=== PATIENT | female | born 1940 | race Two or more races ===

== ENCOUNTER 2024-08-04 12:55 | Inpatient (IN) | payer MEDICARE, SELFPAY ==
[2024-08-02 18:37] LABS: % Basophils 0.6 % (0-2); % Eosinophils 3.8 % (0-6); % Immature Granulocytes 0.4 % (0-0.5); % Lymphocytes 11.6 % (20.5-51.1); % Monocytes 11.5 % (1.7-9.3); % Neutrophils 72.1 % (42.2-75.2); Absolute Basophils 0.1 10^3/uL (0-0.2); Absolute Eosinophils 0.3 10^3/uL (0-0.7); Absolute Monocytes 0.9 10^3/uL (0.1-0.6); Absolute Neutrophils 5.9 10^3/uL (1.4-6.5); Hematocrit 32.5 % (37.0-47.0); Hemoglobin 11.4 g/dL (12.0-16.0); Mean Corp Hgb Conc. 35.1 g/dL (33.0-37.0); Mean Corpuscular Hgb 29.7 pg (27.0-31.0); Mean Corpuscular Volume 84.6 fL (81.0-99.0); Mean Platelet Volume 9.5 fL (7.4-10.4); Nucleated Red Blood Cells % 0 %; Platelet Count 368 10^3/uL (130-400); Red Blood Cell Count 3.84 10^6/uL (4.20-5.40); Red Cell Dist. Width 14.5 % (11.5-14.5); White Blood Cell Count 8.2 10^3/uL (4.8-10.8)
[2024-08-02 18:50] LABS: ALT (SGPT) 18 U/L (0-35); AST (SGOT) 30 U/L (14-36); Albumin 4.4 g/dl (3.5-5.0); Alkaline Phosphatase 103 U/L (38-126); Blood Urea Nitrogen 19 mg/dl (7-17); Calcium 9.7 mg/dl (8.4-10.2); Carbon Dioxide 20 mmol/L (22-30); Chloride 101 mmol/L (98-107); Glucose 104 mg/dl (70-99); Potassium 4.6 mmol/L (3.5-5.1); Sodium 131 mmol/L (135-145); Total Bilirubin 0.5 mg/dl (0.2-1.3); Total Protein 7.4 g/dl (6.3-8.2); eGFR > 60.00
[2024-08-02] MEDS: NSS 1000 IV (20:53)
[2024-08-02 21:19] VITALS: BP 155/87; BP 163/95; BP 168/89; PULSE 73; PULSE 79; PULSE 84
--- NOTE | 2024-08-02 21:36 | HPS.HSE ---
Family Physician
-
Family Physician: Vijay Ha
Chief Complaint
-
fall
History of Present Illness
Patient is a 83-year-old female with past medical history significant for essential hypertension and hypothyroidism who presented to [facility] ED for evaluation s/p fall. Patient reports sitting on floor and when attempting to get up she
fell and hit head on night table sustaining laceration to left eyebrow. Patient reports poor nutrition in last month related to difficulty eating and drinking. Patient is being followed by GI for this, they attempted a upper endoscopy which was not
completed r/t narrowing of the esophagus. Plan was for procedure with GI on this coming Friday. Patient does state she has some lightheadedness at times, and has been more prevalent with decreased PO intake. Denies any fever, chills, chest pain,
cough, shortness of breath, nausea, vomiting, constipation, diarrhea or urinary symptoms.
Medical History
Past Medical History
Past Medical History: Reports Other
Additional Past Medical History:
essential hypertension
hypothyroidism
Hx hyponatremia
Past Surgical History: Reports Other
Additional Past Surgical History:
right mastectomy
cardiac stent x3
left hip replacement
bilateral shoulder replacement
Social History
Tobacco: Non-smoker
Alcohol: None
Family History
Family History: Not pertinent
Allergies / Home Medications
Allergies reflects when Allergies were last updated in [employer].
Home Medications with original date entered in [facility]
Allergy/Medication List:
Allergies
Allergy/AdvReac Type Severity Reaction Status Date / Time
No Known Allergies Allergy Unverified 08/02/24 17:16
Home Medications
amlodipine 10 mg tablet 10 mg PO DAILY 08/02/24
cyclosporine 0.05 % eye drops in a dropperette (Restasis) 1 drp BOTH EYES Q12H 08/02/24
dorzolamide-timolol (PF) 2 %-0.5 % eye drops in a dropperette 1 drp BOTH EYES BID 08/02/24
levothyroxine 25 mcg tablet 25 mcg PO DAILY 08/02/24
ramipril 5 mg capsule 5 mg PO BID 08/02/24
Review of Systems
-
History Source: Patient
Constitutional: Reports No Symptoms
EENT: Reports No Symptoms
Respiratory: Reports No Symptoms
Cardiac: Reports No Symptoms
Abdomen/GI: Reports Anorexia (r/t difficulty swallowing )
: Reports No Symptoms
Musculoskeletal: Reports No Symptoms
Skin: Reports No Symptoms
Neurological: Reports Dizzy
Endocrine: Reports No Symptoms
Hematologic/Lymphatic: Reports No Symptoms
Psych: Reports No Symptoms
Physical Exam
Vital Signs
Vital Signs
Temp Pulse Resp Pulse Ox
98.1 F 70 20 98
08/02/24 17:16 08/02/24 17:16 08/02/24 17:16 08/02/24 17:16
Physical Exam
General: Well Developed, Well Nourished, No Apparent Distress, Comfortable and Conversant
HEENT: NormoCephalic, Moist mucous membranes, Atraumatic, [place] Conjunctivae, Nose Appears Normal, Ears Appear Normal and Other (laceration to left eyebrow)
Respiratory: Clear
Cardiac: S1/S2 and Regular Rhythm; No Murmur or Rub
Breast: Deferred by me
GI: Soft, Non Tender, Non Distended and Normal Bowel Sounds; No Organomegaly
Rectal: Deferred by Provider
Genito-urinary: Deferred by me
Musculoskeletal: No Clubbing, No Cyanosis and No Edema
Skin: IV/Catheter Site
Neuro: Awake, Alert, AO x 3 and Nonfocal/grossly intact
Psych: Calm and Intact Judgment/Insight
Laboratory Results
-
08/02/24 18:23
08/02/24 18:23
Laboratory Results
Total Bilirubin 0.5 mg/dl (0.2-1.3) 08/02/24 18:23
AST 30 U/L (14-36) 08/02/24 18:23
ALT 18 U/L (0-35) 08/02/24 18:23
Alkaline Phosphatase 103 U/L (38-126) 08/02/24 18:23
Data Reviewed
-
CT Scan: Report Reviewed by me (head: No acute intracranial abnormality noted. Moderate atrophy with sequelae of mild small vessel ischemic disease.)
Lab Data: Labs Reviewed by me
Impression/Plan
-
IMPRESSION/PLAN:
#fall, mechanical vs. syncopal episode
Orthostatic VS negative
NA [address]: No acute intracranial abnormality noted.
Moderate atrophy with sequelae of mild small vessel ischemic disease.
- Admit to telemetry for observation
- orthostatic VS stable in ED
#dysphagia
following with GI for workup
recent upper endoscopy failed r/t narrowing of esophagus
- full liquid diet
- Ensure TID
- Consult GI
- Dr. Zelaya will discuss with Dr. Burr in morning
#essential hypertension
- continue amlodipine and ramipril
#hypothyroidism
- continue levothyroxine
Code status: DNR
DVT Prophylaxis: SCDs
--- NOTE | 2024-08-02 21:57 | W.PN.UPDATE ---
Update Note
Progress Note Update
Patient seen in conjunction with MIDDLEWARE SYSTEMS ARCHITECT. I agree the findings and physical. I concur with assessment plan unless stated otherwise.
Briefly, this is a 83-year-old female with past medical history of CAD status post stenting, history of breast cancer status post left mastectomy and lymph node dissection on in the remote past, hypertension, hypothyroid presenting to the emergency
department after suffering a fall.
Patient has been having some failure to thrive due to dysphagia over the last 1 month. Patient and family she is having difficulty with solids and tablets. She has stopped taking aspirin and statin at this time. It is suspected that she has a
esophageal stricture/narrowing. She had an EGD done last week and was unsuccessful due to inability to pass the camera due to narrowing of the esophagus. She has a pending EGD coming up in 5 days.
Patient reported that she was sitting down and when she attempted to get up she felt like he tripped and smacked left forehead against a table. She developed profuse bleeding over her face and family was called and patient was brought to the
emergency department. Patient reports headache and lightheadedness after the head trauma. Prior to that she reports some intermittent mild dizziness. She denies having any chest pain except when she is swallowing. She denies any palpitations.
She denies orthopnea PND shortness of breath at rest. She denies any ankle edema. She denies any prior history of arrhythmias. Family denies any facial asymmetry, numbness tingling or focal weakness. She reports history of dark stool for which
she was evaluated with alcohol testing by oncology few months ago and was found to be negative.
However when asked how she felt prior to getting up patient could not give a concise story. She used the words 'I felt like I blacked out that part'.
In the emergency department she was afebrile, blood pressure was 155/87, pulse rate was 70 and she was satting 98% on room air. CBC was stable with a hemoglobin of 11.4. Electrolytes notable for sodium of 131 but otherwise unremarkable.
BUN/creatinine were normal. Glucose was normal at 104.
CT of the head shows no acute intracranial process
-Admit to telemetry observation at this point for possible syncope
- tele x 24 hours
- she has negative orthostatics in ED, no need to repeat
- gentle hydration overnight
- continue ramipril and amlodipine
- will give full liquid diet with supplements
- GI planning on possible procedure, Dr Burr and Shanell to discuss in am, consult GI
DVT PPX - SCD
Code status - DNR
--- NOTE | 2024-08-02 22:19 | ED.GENMED ---
History of Present Illness
General
Chief Complaint: Fall
Source: patient and family (Son contributes history, states she has not been eating)
Time Seen by Provider: 08/02/24 17:35
History of Present Illness
History of Present Illness:
83-year-old female presents Emergency Department due to tripping and falling and hitting head, with a laceration to her left eyebrow. She has not been eating, and has esophageal narrowing. An endoscopy was attempted at [facility], but she was unable
to proceed due to the narrowing. She has endoscopic ultrasound scheduled at [facility] on Friday.
Past History
Past History
ED Past Medical History: Cancer (Breast cancer)
ED Past Surgical History: Orthopedic (Elbow surgery, hip surgery, shoulder/) and Other (Breast surgery for breast cancer)
Social History
Tobacco: Non-smoker
Alcohol: None
Drug: None
Living: with family
Review of Systems
Review of Systems
Allergies reviewed?: Yes
All Other Systems: Not applicable
Constitutional: Reports no symptoms
EENT: Reports no symptoms
Respiratory: Reports no symptoms
Cardiac: Reports no symptoms
ABD/GI: Reports anorexia
: Reports no symptoms
Musculoskeletal: Reports no symptoms
Skin: Reports no symptoms
Neurological: Reports no symptoms
Endocrine: Reports no symptoms
Hematologic/Lymphatic: Reports no symptoms
Psychiatric: Reports no symptoms
Phy Exam
Physical Exam
Physical Exam:
Physical Exam
General: Appears uncomfortable
Neck: supple. no meningeal signs. normal posterior pharynx
Heart: s1/s2 regular rate and rhythm, no murmur. equal radial
pulses.
HEENT: Pupils equal round reactive to light, EOMI
Lungs: no acute respiratory distress. clear bilaterally
Abdomen: normal bowel sounds. not tender. no CVAT
Neuro: alert and oriented. no focal neurological deficits cranial nerves II through XII intact
Skin: no rash, laceration left eyebrow 2 cm
Psychiatric: well kept. interactive and cooperative
Extremities: no edema. no calf tenderness. negative homans. good distal pulses
Course
Orders/Labs/Results
Orders:
Orders
08/02/24 18:03
IV Insert/Care/Rem.- Treatment PRN
08/02/24 18:05
CT Head W/o Iv Contrast Urgent
Comment:
Reason For Exam: fall, hit head
08/02/24 18:23
Complete Blood Count/With Diff Urgent
Comprehensive Metabolic Panel Urgent
08/02/24 20:13
0.9% Sodium Chloride 1000 ml [Nss] 1,000 ml IV BOLUS
08/02/24 20:56
Electrocardiogram (*1) Urgent
EKG- Treatment ONCE
Orthostatic VS- Treatment ONCE
08/02/24 22:00
Flush (0.9% Sodium Chloride) [Flush (Nss)] See Dose Instructions IV PER PROTOCOL
08/02/24 22:10
Admit/Transfer Patient As Directed
Co-Sign Provider:
Level of Care: Observation services
Assign to:: Telemetry
Physician / Group: Mirna Gruber
Diagnosis: fall
Reason for Telemetry: Arrhythmia
Date to Stop Telemetry: 08/05/24
Time to Stop Telemetry: 11:00
PRN Pain Medication Management As Directed
May give lesser potent ordered pain med per pt: Yes
preference::
Protocol:: Medication orders for pain may be administered in a
manner that supports deferring to patient preference
when the pt is:
- Requesting an ordered lesser potent pain medication.
Least to most potent pain medications are defined
as: acetaminophen < NSAID < tramadol < opioids
(morphine, oxycodone, hydromorphone).
- Requesting a lesser dose of the same medication IF
ORDERED.
- Requesting a less intrusive route of administration
if both routes are prescribed by the provider (PO <
IV).
08/02/24 22:11
Code Status As Directed
Resuscitation Status: Do not resuscitate
Reached after discussion with pt or family/Healthcare POA: Yes
Decision communicated with: patient and son
DNR Bracelet Application ONCE
08/05/24 11:00
DC Protocol for Telemetry ONCE
Abnormal Lab Results
08/02/24
18:23
RBC 3.84 L 10^6/uL
(4.20-5.40)
Hgb 11.4 L g/dL
(12.0-16.0)
Hct 32.5 L %
(37.0-47.0)
Absolute Lymphs (auto) 1.0 L 10^3/uL
(1.2-3.4)
Absolute Monos (auto) 0.9 H 10^3/uL
(0.1-0.6)
Lymphocytes % 11.6 L %
(20.5-51.1)
Monocytes % 11.5 H %
(1.7-9.3)
Sodium 131 L mmol/L
(135-145)
Carbon Dioxide 20 L mmol/L
(22-30)
BUN 19 H mg/dl
(7-17)
Glucose 104 H mg/dl
(70-99)
08/02/24 18:23
08/02/24 18:23
Vital Signs
Initial and Last Documented VS:
Initial Vital Signs
Temp Pulse Resp Pulse Ox
98.1 F 70 20 98
08/02/24 17:16 08/02/24 17:16 08/02/24 17:16 08/02/24 17:16
Last Documented Vital Signs
Temp Pulse Resp Pulse Ox
98.1 F 70 20 98
08/02/24 17:16 08/02/24 17:16 08/02/24 17:16 08/02/24 17:16
Procedures
Laceration Closure
Left Forehead:
Status of Wound: clean
Size of Wound in cm: 2
Description of Wound Edges: sharp
Preparation: cleaned with saline
Revision/Debridement: routine- no revision
Wound exploration: explored to base- no FB
Type of Closure: Dermabond-skin glue
MDM/Problems Addressed
Differential Diagnosis Includes:
Intracranial hemorrhage, electrolyte abnormality
MDM/Problems Addressed:
83-year-old female with fall, left eyebrow laceration, decreased p.o. intake and esophageal narrowing with mild dehydration. Admit to hospitalist. Discussed with gastroenterology, who will consider endoscopic ultrasound if available.
Chronic conditions affecting care: Other (Esophageal narrowing)
*Radiology
Radiology exam reviewed: radiology read reviewed (CT head no acute findings)
*Pulse Oximetry
Patient hypoxic: no
*EKG
Interpreted by ED Provider?: Yes
EKG Intrepretation Date: 08/02/24
EKG Intrepretation Time: 21:17
Interpretation: abnormal
Comparison EKG: no comparison EKG present
Heart Rate: 77
Rate: normal
Rhythm: sinus
Interval: normal interval
QRS Pattern: normal QRS
Ischemia: no ischemia
*Advice Nurse Interpretation
Rate: Advice Nurse- N/A
*Critical Care Note
Total Time (30-74mins, 75-104mins- exclusive of procedures): Not Applicable
Patient Management
Social determinants of health affecting care: Living situation
Discussion with other providers: Hospitalist, PCP and Manager Auto (Gastroenterology)
Escalation/DeEscalation of care consider admission/obs:
admit indicated
ED Attending Note
-
Portions of this chart may have been created with voice recognition software.� Occasional wrong word or��sound alike� substitutions may have occurred due to the inherent limitations of voice recognition software.
Discharge Plan
Departure
Patient Disposition: Admit
Date of Disposition: 08/02/24
Time of Disposition: 21:10
Admit to: Telemetry
Presentation/result/management discussed w/ accepting MD/DO: Hospitalist
Patient with high blood pressure during this ER visit?: Yes
Condition: Fair
Discharge Problem:
Fall, Laceration of eyebrow, left, Hypovolemia
Prescriptions:
No Action
levothyroxine 25 mcg Tablet
25 mcg PO DAILY
amlodipine 10 mg Tablet
10 mg PO DAILY
ramipril 5 mg Capsule
5 mg PO BID
cyclosporine [Restasis] 0.05 % Dropperette
1 drp BOTH EYES Q12H
dorzolamide-timolol (PF) 2-0.5 % Dropperette
1 drp BOTH EYES BID
Referrals:
Vijay Ha MD [Family Provider] -
Interventions
Interventions:
*Risk Screen - Suicide Last Done: 08/02/24 18:06
*General Assessment Last Done: 08/02/24 17:16
*Neglect/Abuse Screening Last Done: 08/02/24 18:06
*ED- Fall Risk Assessment Last Done: 08/02/24 17:45
*ED COVID-19 Vaccine History Last Done: 08/02/24 17:45
ED-Musculoskeletal Assessment Last Done: 08/02/24 18:05
ED- Neurological Assessment Last Done: 08/02/24 18:05
ED-Skin Assessment Last Done: 08/02/24 18:05
Discharge Date and Time
Print Language: GEORGIAN
[2024-08-02 22:39] VITALS: BP 155/87
[2024-08-03] VITALS (20 sets, daily range): BP systolic 110–179; BP diastolic 65–85; PULSE 75–86; BMI 20.7; BMI 19.4
[2024-08-03] MEDS: SYNTHROID 25 MCG PO (05:30)
[2024-08-03 06:25] LABS: Hematocrit 30.3 % (37.0-47.0); Hemoglobin 10.5 g/dL (12.0-16.0); Mean Corp Hgb Conc. 34.7 g/dL (33.0-37.0); Mean Corpuscular Hgb 29.2 pg (27.0-31.0); Mean Corpuscular Volume 84.4 fL (81.0-99.0); Mean Platelet Volume 9.5 fL (7.4-10.4); Platelet Count 350 10^3/uL (130-400); Red Blood Cell Count 3.59 10^6/uL (4.20-5.40); Red Cell Dist. Width 14.4 % (11.5-14.5); White Blood Cell Count 7.4 10^3/uL (4.8-10.8)
[2024-08-03 06:48] LABS: Blood Urea Nitrogen 11 mg/dl (7-17); Calcium 8.8 mg/dl (8.4-10.2); Carbon Dioxide 23 mmol/L (22-30); Chloride 106 mmol/L (98-107); Estimated Creatinine Clearance 45 ml/min; Glucose 73 mg/dl (70-99); Potassium 3.9 mmol/L (3.5-5.1); Sodium 134 mmol/L (135-145); eGFR > 60.00
--- NOTE | 2024-08-03 06:56 | CON.GI ---
Addendum entered and electronically signed by Haven Davis DO 08/03/24 10:04:
The patient was seen and examined by me independently in collaboration with the nurse practitioner.
Past medical history/social history/medications/allergies/family history reviewed.
Lab data and imaging data reviewed.
Briefly, Lazarus Newman is an 83 y.o. female w/ history of breast ca s/p mastectomy/chemo/radiation therapy, history of EDILBERTO, hypothyroidism, HTN, hyponatremia, carotid stents admitted after a mechanical fall but reported ongoing issues with dysphagia
over the last 6 weeks. She reports having a recent EGD with Dr. Soto last week, procedure aborted due to 'esophageal narrowing and food retention' however, apparently no pictures taken and no biopsies obtained, but set up to have an EUS on Friday.
This is somewhat unclear to me as the reason for EUS would be if the concern was malignancy and I am unsure what exactly was seen at time of initial EGD. Additionally, no imaging to review. We are in the process of getting a copy of the procedure
report from Dr. Soto's office. That said, after discussion with Dr. Burr, will plan to repeat EGD today, based on findings, Dr. Burr will decide whether or not proceeding with EUS following EGD is warranted.
Addendum entered and electronically signed by IMMANUEL Lai 08/03/24 09:40:
reviewed with Dr. Burr added EGD with possible EUS later today
Original Note:
Consultation
-
Date/Time Consultation Requested: 08/02/24 2330
Date/Time Consultation Performed: 08/03/24 0800
Requesting Provider: IMMANUEL Garcia
Performing Provider: IMMANUEL Cespedes, Octavia Davis DO
Reason for Consultation: esophageal narrowing
Medical History
Chief Complaint / HPI
Chief Complaint: s/p fall
History of Present Illness:
Pt is an 83yo with hx breast Ca s/p mastectomy/chemo/radiation in 2005, prior EDILBERTO, hypothyroidism, HTN, hyponatremia, carotid stents with presentation to ER with fall. Per admission pt with recent attempted EGD in [place] with Dr. Soto with
esophageal narrowing/food impaction and due for EUS at [facility] on Friday. On admission pt noted with hbg 10.5, Na 134, otherwise stable labs.
In review with patient noted with difficulty swallowing about 1-2 months ago. She admits to taking ensure but also has odynophagia, chest pressure, 4 lbs wt loss and GERD not improved with PPI therapy. She does admit to hematemesis worse at
night and constipation with eating less with miralax use. She denies issue with diarrhea. She also did completed prior EGD/colon about 4 years ago for iron deficiency and did not recall any prior abnormalities. Denies anticoagulation or NSAID use
prior to admission.
Past Medical History
Past Medical History: Cancer (breast CA), HTN, Hypothyroidism and Other (hyponatremia )
Past Surgical History: Gynecological (right mastectomy), Orthopedic (hip replacement, shoulder replacement , elbow surgery) and Other (carotid stents)
Social History
Tobacco: Non-Smoker
Alcohol: Occasional
Drug: None
Personal:
Living: With Family
Employment: Retired
Family History
Family History: Other (father with throat/thyroid CA, uncle with stomach CA, uncle with lung CA)
Allergies / Home Medications
Allergy/AdvReac Type Severity Reaction Status Date / Time
No Known Allergies Allergy Unverified 08/02/24 17:16
�Medication �Instructions �Recorded
amlodipine 10 mg tablet 10 mg PO DAILY 08/02/24
cyclosporine 0.05 % eye drops in a 1 drp BOTH EYES Q12H 08/02/24
dropperette (Restasis)
dorzolamide-timolol (PF) 2 %-0.5 % 1 drp BOTH EYES BID 08/02/24
eye drops in a dropperette
levothyroxine 25 mcg tablet 25 mcg PO DAILY 08/02/24
ramipril 5 mg capsule 5 mg PO BID 08/02/24
Review of Systems
-
History Source: Patient and Family
Constitutional: Reports Weight Loss and Fatigue
EENT: Reports Other (dysphagia, odynophagia )
Respiratory: Reports No Symptoms
Cardiac: Reports Chest Pain (pressure with difficulty swallowing )
Abdomen/GI: Reports Nausea, Vomiting (some some blood emesis ) and Constipated
: Reports No Symptoms
Musculoskeletal: Reports No Symptoms
Skin: Reports No Symptoms
Neurological: Reports Weakness (s/p fall )
Endocrine: Reports No Symptoms
Hematologic/Lymphatic: Reports Bleeding
Vital Signs
Temp Pulse Resp BP Pulse Ox
98.1 F 70 18 137/71 96
08/02/24 17:16 08/03/24 05:00 08/03/24 05:00 08/03/24 05:00 08/03/24 05:00
Physical Exam
Exam
General: Well Developed, Well Nourished and No Apparent Distress
HEENT: Normocephalic and Anicteric
Respiratory: Clear
Cardiac: Regular Rhythm
GI: Soft, Non Tender and Distended (minimal )
Skin: Warm and Dry
Neuro: Awake, Alert and AO x 3
Hematologic/Lymphatic: Lymphadenopathy (pt reports recent right anxillary adenopathy- minimal detected )
Psych: Calm
Results
WBC 7.4 10^3/uL (4.8-10.8) 08/03/24 05:40
Hgb 10.5 g/dL (12.0-16.0) L 08/03/24 05:40
Hct 30.3 % (37.0-47.0) L 08/03/24 05:40
MCV 84.4 fL (81.0-99.0) 08/03/24 05:40
Plt Count 350 10^3/uL (130-400) 08/03/24 05:40
Absolute Neuts (auto) 5.9 10^3/uL (1.4-6.5) 08/02/24 18:23
Sodium 134 mmol/L (135-145) L 08/03/24 05:40
Potassium 3.9 mmol/L (3.5-5.1) 08/03/24 05:40
Chloride 106 mmol/L (98-107) 08/03/24 05:40
Carbon Dioxide 23 mmol/L (22-30) 08/03/24 05:40
BUN 11 mg/dl (7-17) 08/03/24 05:40
Creatinine 0.5 mg/dL (0.6-1.0) L 08/03/24 05:40
Calcium 8.8 mg/dl (8.4-10.2) 08/03/24 05:40
Total Bilirubin 0.5 mg/dl (0.2-1.3) 08/02/24 18:23
AST 30 U/L (14-36) 08/02/24 18:23
ALT 18 U/L (0-35) 08/02/24 18:23
Alkaline Phosphatase 103 U/L (38-126) 08/02/24 18:23
Diagnostic Image Results:
Prior GI Procedures:
EGD:
Colonoscopy:
Assessment / Plan
-
Pt is an 83yo with hx breast Ca s/p mastectomy/chemo/radiation in 2005, prior EDILBERTO, hypothyroidism, HTN, hyponatremia, carotid stents with presentation to ER with fall. Per admission pt with recent attempted EGD in [place] with Dr. Soto with
esophageal narrowing/food impaction and due for EUS at [facility] on Friday. On admission pt noted with hbg 10.5, Na 134, otherwise stable labs.
-dysphagia with recent noted esophageal narrowing/food impaction
-s/p fall
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
-mild hyponatremia
-anemia
other med problems:
-breast CA s/p mastectomy/chemo radiation
-hypothyroidism
-HTN
-hypotension
-carotid stents
PLAN:etiology of fall with concern for weakness with not eating with dysphagia
Etiology of dysphagia and esophageal narrowing related to stricture- benign vs malignant- prior radiation related, mass, vs other
obtain records of recent EGD with Dr. Soto [phone]. I called to request -- per family noted food and narrowing without bx taken
Pt had possible Ct chest recently at [place] will request records
currently on full liquid diet will change on NPO
will need eventual EUS discussed with family and pt would like to proceed here if able as limited oral intakes -- will review with Dr. Burr for timing
-
-
Thank you for consultation and allowing me to participate in the patient's care. Please call the electronic scale subassembler GI physician during the after hours with any questions or concerns.
[2024-08-03] MEDS: RESTASIS 0.05% OPHTHALMIC EMULSION 1 DROPS BOTH EYES ×2 (08:18→21:38)
[2024-08-03] MEDS: ALTACE 5 MG PO ×2 (08:18→21:37)
[2024-08-03] MEDS: TIMOPTIC 0.5% OPHTHALMIC SOLUTION 1 DROP BOTH EYES ×2 (08:19→21:40)
[2024-08-03] MEDS: TRUSOPT 2% OPHTHALMIC SOLUTION 1 DROP BOTH EYES ×2 (08:19→21:40)
[2024-08-03] MEDS: NORVASC 10 MG PO (08:34)
--- NOTE | 2024-08-03 10:48 | W.PN.HOSP.TC ---
Today's Communication/Plan
-
see plan
Assessment / Plan
Assessment / Plan
Gen: NAD, awake and alert, appears chronically ill and malnourished
Eyes: EOMI, PERRLA, no scleral icterus. Left eyebrow laceration that is stitched with soft tissue edema, currently not bleeding
Neck: supple.
CV: RRR, +S1/S2, no m/r/g.
Resp: CTAB, no rales, wheezes, or rhonchi.
Abd: +BS, soft, NT, ND
Skin: No rashes.
Neuro: CN 2-12 intact, non-focal.
Psych: Normal mood and affect.
CT brain: No acute intracranial abnormality noted. Moderate atrophy with sequelae of mild small vessel ischemic disease.
Fall:
-with L eyebrow lac
-mechanical vs. syncopal episode
-orthostatic VS NEG
-PT/OT
Dysphagia:
-for EGD/EUS today
Other problems:
Essential hypertension: cont amlodipine/ramipril
Hypothyroidism: cont levothyroxine
Hyponatremia, mild
DNR/SCD
Anticipated Discharge: Within 24 hours
Subjective/Interval History
-
Date of Service: August 03, 2024
Denies chest pain, shortness breath, lightheadedness.
Objective Data
-
Labs:
Laboratory Results
08/03/24 08/03/24
05:40 10:27
WBC 7.4
Hgb 10.5 L
Hct 30.3 L
Plt Count 350
PT Pending
INR Pending
Sodium 134 L
Potassium 3.9
Chloride 106
Carbon Dioxide 23
BUN 11
Creatinine 0.5 L
Glucose 73
Calcium 8.8
Vital Signs:
Vital Signs
Temp Pulse Resp BP Pulse Ox
98.5 F 99 20 122/66 98
08/03/24 07:30 08/03/24 08:34 08/03/24 07:30 08/03/24 08:34 08/03/24 07:30
[2024-08-03 10:57] LABS: INR 1.08; PT 14.3 Sec (11.4-14.6)
[2024-08-03] MEDS: MELATONIN 3 MG PO (21:46)
[2024-08-04] VITALS (7 sets, daily range): BP systolic 120–145; BP diastolic 66–77; PULSE 64–80; O2SAT 100; BMI 19.9
[2024-08-04] MEDS: SYNTHROID 25 MCG PO (05:49)
[2024-08-04 07:22] LABS: Hematocrit 30.3 % (37.0-47.0); Hemoglobin 10.4 g/dL (12.0-16.0); Mean Corp Hgb Conc. 34.3 g/dL (33.0-37.0); Mean Corpuscular Hgb 29.1 pg (27.0-31.0); Mean Corpuscular Volume 84.6 fL (81.0-99.0); Mean Platelet Volume 8.8 fL (7.4-10.4); Platelet Count 339 10^3/uL (130-400); Red Blood Cell Count 3.58 10^6/uL (4.20-5.40); Red Cell Dist. Width 14.4 % (11.5-14.5); White Blood Cell Count 6.8 10^3/uL (4.8-10.8)
[2024-08-04 07:48] LABS: Blood Urea Nitrogen 10 mg/dl (7-17); Calcium 8.7 mg/dl (8.4-10.2); Carbon Dioxide 17 mmol/L (22-30); Chloride 102 mmol/L (98-107); Estimated Creatinine Clearance 44 ml/min; Glucose 72 mg/dl (70-99); Potassium 3.9 mmol/L (3.5-5.1); Sodium 131 mmol/L (135-145); eGFR > 60.00
--- NOTE | 2024-08-04 08:05 | W.PN.GI.CBS2 ---
Addendum entered and electronically signed by IMMANUEL Lai 08/04/24 08:42:
I updated younger son on plan. Will get dietary consult to review diet on discharge.
Original Note:
Today's Communication / Plan
-
Continue liquid/pureed diet. Start carafate and PPI. F/u biopsies
Assessment / Plan
-
Pt is an 83yo with hx breast Ca s/p mastectomy/chemo/radiation in 2005, prior EDILBERTO, hypothyroidism, HTN, hyponatremia, carotid stents with presentation to ER with fall. Per admission pt with recent attempted EGD in [place] with Dr. Soto with
esophageal narrowing/food impaction and due for EUS at [facility] on Friday. On admission pt noted with hbg 10.5, Na 134, otherwise stable labs. She underwent EGD with Dr. Burr on 08/03 with findings of benign intrinsic stenosis in the
esophagus, dilated to 12 mm, erythematous and friable mucosa in the gastric body, antrum and prepyloric stomach, congestive gastropathy, normal examined duodenum.
#Dysphagia 2/2 benign intrinsic stenosis in the esophagus
-s/p dilation to 12 mm on 08/03
-discussed that she will likely require serial dilations, possible etiology could be previous radiation?
-continue clears, advance as tolerated, discussed modified diet with her
-will add carafate
-Recommend starting PPI daily for significant gastropathy on EGD
-biopsies of stricture taken-- if abnormalities found, can then proceed with EUS, but may not be necessary
-she wishes to transition her care to [facility], will work on arranging for repeat outpatient dilation
Subjective
Subjective
Date of Service: August 04, 2024
Patient seen in follow-up. She underwent EGD with Dr. Burr yesterday with findings of benign intrinsic stenosis, dilated to 12 mm. Biopsies taken, additional findings below. She reports some throat irritation, still having difficulty swallowing,
currently on clears, going to try and drink some ensure today.
Impression: - Benign-appearing esophageal stenosis. Dilated.
Biopsied.
- Erythematous mucosa in the gastric body, antrum and
prepyloric region of the stomach. Biopsied.
- Friable gastric mucosa.
- Congestive gastropathy.
- Normal duodenal bulb, first portion of the duodenum
and second portion of the duodenum.
Objective
Data Reviewed
Laboratory Data:
Laboratory Results
08/04/24 06:49
08/04/24 06:49
Laboratory Results
PT 14.3 Sec (11.4-14.6) 08/03/24 10:27
INR 1.08 08/03/24 10:27
Total Bilirubin 0.5 mg/dl (0.2-1.3) 08/02/24 18:23
AST 30 U/L (14-36) 08/02/24 18:23
ALT 18 U/L (0-35) 08/02/24 18:23
Alkaline Phosphatase 103 U/L (38-126) 08/02/24 18:23
Vital Signs and I&O:
Vital Signs
Temp Pulse Resp BP Pulse Ox
98.0 F 70 18 130/73 97
08/04/24 07:38 08/04/24 07:38 08/04/24 07:38 08/04/24 07:38 08/04/24 07:38
I&O
08/03/24 08/04/24 08/05/24
06:59 06:59 06:59
Intake Total 0 / 0
Balance 0 / 0
Physical Exam
Physical Exam
GENERAL: In no acute distress, appears comfortable
ABDOMEN: +BS; soft, non-tender and non-distended; no rebound or guarding
[2024-08-04] MEDS: PROTONIX 40 MG PO (08:50)
[2024-08-04] MEDS: ALTACE 5 MG PO ×2 (08:50→20:03)
[2024-08-04] MEDS: NORVASC 10 MG PO (08:50)
[2024-08-04] MEDS: TRUSOPT 2% OPHTHALMIC SOLUTION 1 DROP BOTH EYES ×2 (08:50→20:37)
[2024-08-04] MEDS: CARAFATE SUSPENSION 1 GM PO (08:50)
[2024-08-04] MEDS: RESTASIS 0.05% OPHTHALMIC EMULSION 1 DROPS BOTH EYES ×2 (08:50→20:03)
[2024-08-04] MEDS: TIMOPTIC 0.5% OPHTHALMIC SOLUTION 1 DROP BOTH EYES ×2 (08:51→20:37)
--- NOTE | 2024-08-04 09:23 | WOUNDNOTE ---
KENDY RN NOTE: Patient admitted s/p fall, laceration to L eyebrow and hypovolemia. PMH of breast cancer, elbow,hip, shoulder and breast surgery. Patient said she fell and hit her face on side of bedside table. L eyebrow and cheek with redness, slight
swelling, no drainage. Patient reports glue was used to close laceration in ER. Eyebrow cleaned with soap and water, Vaseline applied. Will confirm orders with hospitalist and update wound care. Will sign off unless needed.
--- NOTE | 2024-08-04 10:04 | CM ---
Patient seen bedside, initial assessment completed. Patient's son, Walt, was on speakerphone during assessment.
Patient is a 83-year-old female with past medical history significant for essential hypertension and hypothyroidism who presented to [facility] ED for evaluation s/p fall. Patient reports sitting on floor and when attempting to get up she
fell and hit head on night table sustaining laceration to left eyebrow.
Patient reports that she resides w/ spouse in a 2STH- 3 steps to enter the home. Patient uses RW for ambulation and has tub grab bar in the bathroom. Patient is independent w/ ADLs. Denies SNF hx. Prev known to [facility] for PT last year. No current
OP or home services at this time.
Address, point of contact and insurance verified
PCP: Vijay Ha
[facility] for mail orders
Patient admitted as OBS. DOMINGO form verbally reviewed, patient given copy. No chart available to place copy
Therapy assessed patient and is recommending home PT at d/c. Patient agreeable to [facility] again. Referral placed in [facility] for review.
Plan: Home w/ [facility]
--- NOTE | 2024-08-04 12:45 | W.PN.HOSP.TC ---
Today's Communication/Plan
-
see plan
Assessment / Plan
Assessment / Plan
Gen: NAD, awake and alert, appears chronically ill and malnourished
Eyes: EOMI, PERRLA, no scleral icterus. Left eyebrow laceration that is stitched with soft tissue edema, currently not bleeding
Neck: supple.
CV: Remains RRR, +S1/S2, no m/r/g.
Resp: Remains CTAB, no rales, wheezes, or rhonchi.
Abd: Remains +BS, soft, NT, ND
Skin: No rashes.
Neuro: CN 2-12 intact, non-focal.
Psych: Normal mood and affect.
CT brain: No acute intracranial abnormality noted. Moderate atrophy with sequelae of mild small vessel ischemic disease.
EGD 08/03/24: Benign-appearing esophageal stenosis. Dilated.
Biopsied.
- Erythematous mucosa in the gastric body, antrum and
prepyloric region of the stomach. Biopsied.
- Friable gastric mucosa.
- Congestive gastropathy.
- Normal duodenal bulb, first portion of the duodenum
and second portion of the duodenum.
Fall:
-with L eyebrow lac
-mechanical vs. syncopal episode
-orthostatic VS NEG
-PT/OT
Dysphagia:
-s/p EGD on 08/03/24 as above, benign-appearing esophageal stenosis dilated
-GI following
-cont liquid/pureed diet
-cont PPI/carafate for significant gastropathy
-follow up Bxs from EGD
Other problems:
Essential hypertension: cont amlodipine/ramipril
Hypothyroidism: cont levothyroxine
Hyponatremia, mild
Breast CA s/p mastectomy/chemo/radiation in 2005
prior EDILBERTO
PAD with carotid stents
DNR/SCD
Anticipated Discharge: Within 24 hours
Subjective/Interval History
-
Date of Service: August 04, 2024
' I feel much better.' Denies abdominal pain.
Objective Data
-
Labs:
Laboratory Results
08/04/24
06:49
WBC 6.8
Hgb 10.4 L
Hct 30.3 L
Plt Count 339
Sodium 131 L
Potassium 3.9
Chloride 102
Carbon Dioxide 17 L
BUN 10
Creatinine 0.5 L
Glucose 72
Calcium 8.7
Vital Signs:
Vital Signs
Temp Pulse Resp BP Pulse Ox
97.6 F 79 18 132/69 100
08/04/24 12:29 08/04/24 12:29 08/04/24 12:29 08/04/24 12:29 08/04/24 12:29
I&O
08/03/24 08/04/24 08/05/24
06:59 06:59 06:59
Intake Total 0 / 0
Balance 0 / 0
[2024-08-04] MEDS: MIRALAX 17 GRAMS PO (13:40)
[2024-08-04] MEDS: MELATONIN 3 MG PO (20:37)
[2024-08-05 03:20] VITALS: BP 141/79
[2024-08-05] MEDS: SYNTHROID 25 MCG PO (06:21)
[2024-08-05 07:22] VITALS: BP 147/77
[2024-08-05] MEDS: MIRALAX 17 GRAMS PO (07:45)
[2024-08-05] MEDS: ALTACE 5 MG PO (07:45)
[2024-08-05] MEDS: PROTONIX 40 MG PO (07:45)
[2024-08-05] MEDS: NORVASC 10 MG PO (07:45)
[2024-08-05] MEDS: RESTASIS 0.05% OPHTHALMIC EMULSION 1 DROPS BOTH EYES (07:45)
[2024-08-05] MEDS: TIMOPTIC 0.5% OPHTHALMIC SOLUTION 1 DROP BOTH EYES (07:48)
[2024-08-05] MEDS: TRUSOPT 2% OPHTHALMIC SOLUTION 1 DROP BOTH EYES (07:48)
--- NOTE | 2024-08-05 08:01 | W.PN.GI.CBS2 ---
Today's Communication / Plan
-
Advance to full liquids. GI to arrange repeat EGD w/ dilation
Assessment / Plan
-
Pt is an 83yo with hx breast Ca s/p mastectomy/chemo/radiation in 2005, prior EDILBERTO, hypothyroidism, HTN, hyponatremia, carotid stents with presentation to ER with fall. Per admission pt with recent attempted EGD in [place] with Dr. Soto with
esophageal narrowing/food impaction and due for EUS at [facility] on Friday. On admission pt noted with hbg 10.5, Na 134, otherwise stable labs. She underwent EGD with Dr. Burr on 08/03 with findings of benign intrinsic stenosis in the
esophagus, dilated to 12 mm, erythematous and friable mucosa in the gastric body, antrum and prepyloric stomach, congestive gastropathy, normal examined duodenum.
#Dysphagia 2/2 benign intrinsic stenosis in the esophagus
-s/p dilation to 12 mm on 08/03
-discussed that she will likely require serial dilations, possible etiology could be previous radiation?
-tolerating clears, advance to full liquids. GI discussed with patient's son yesterday, many questions regarding her nutrition, hopefully, with serially dilation she will be able to tolerate more; would keep her on pureed diet with plans to repeat
EGD in 2-4 weeks
-c/w PPI
-Carafate added
-biopsies of stricture taken-- if abnormalities found, can then proceed with EUS, but may not be necessary
-she wishes to transition her care to [facility], will work on arranging for repeat outpatient dilation; okay to d/c today if medically stable, will update primary team once date for repeat EGD is secured.
Subjective
Subjective
Date of Service: August 05, 2024
Patient seen in follow-up, tolerating clear liquids without issue, definitely feels an improvement in swallowing post-dilation.
Objective
Data Reviewed
Laboratory Data:
Laboratory Results
08/04/24 06:49
08/04/24 06:49
Laboratory Results
PT 14.3 Sec (11.4-14.6) 08/03/24 10:27
INR 1.08 08/03/24 10:27
Total Bilirubin 0.5 mg/dl (0.2-1.3) 08/02/24 18:23
AST 30 U/L (14-36) 08/02/24 18:23
ALT 18 U/L (0-35) 08/02/24 18:23
Alkaline Phosphatase 103 U/L (38-126) 08/02/24 18:23
Vital Signs and I&O:
Vital Signs
Temp Pulse Resp BP Pulse Ox
98.4 F 78 16 147/77 97
08/05/24 07:22 08/05/24 07:45 08/05/24 07:22 08/05/24 07:45 08/05/24 07:22
I&O
08/04/24 08/05/24 08/06/24
06:59 06:59 06:59
Intake Total 0 / 0 1440 / 1440
Balance 0 / 0 1440 / 1440
Physical Exam
Physical Exam
GENERAL: In no acute distress, appears comfortable
ABDOMEN: +BS; soft, non-tender and non-distended; no rebound or guarding
[2024-08-05 08:59] VITALS: BP 125/80; BP 135/68; PULSE 71; O2SAT 94
[2024-08-05 11:05] VITALS: BP 105/58
--- NOTE | 2024-08-05 11:22 | W.PN.HOSP.TC ---
Addendum entered and electronically signed by Monster Coy MD 08/05/24 12:28:
Total time spent on d/c = 33 min. This included today's physical exam, progress note, review of laboratory and diagnostic data, preparation of discharge documents and prescriptions, and discussions about the pt's hospital course and discharge plan
with the patient and other medical officer involved in the patient's care.
Original Note:
Today's Communication/Plan
-
see bold
Assessment / Plan
Assessment / Plan
Gen: NAD, awake and alert, appears chronically ill and malnourished
Eyes: EOMI, PERRLA, no scleral icterus. Left eyebrow laceration that is stitched with soft tissue edema, currently not bleeding
Neck: supple.
CV: continues to remain RRR, +S1/S2, no m/r/g.
Resp: continues to remain CTAB, no rales, wheezes, or rhonchi.
Abd: continues to remain +BS, soft, NT, ND
Skin: No rashes.
Neuro: CN 2-12 intact, non-focal.
Psych: Normal mood and affect.
CT brain: No acute intracranial abnormality noted. Moderate atrophy with sequelae of mild small vessel ischemic disease.
EGD 08/03/24: Benign-appearing esophageal stenosis. Dilated.
Biopsied.
- Erythematous mucosa in the gastric body, antrum and
prepyloric region of the stomach. Biopsied.
- Friable gastric mucosa.
- Congestive gastropathy.
- Normal duodenal bulb, first portion of the duodenum
and second portion of the duodenum.
Fall:
-with L eyebrow lac
-mechanical vs. syncopal episode
-orthostatic VS NEG
-PT/OT
Dysphagia:
-s/p EGD on 08/03/24 as above, benign-appearing esophageal stenosis dilated
-GI following
-cont PPI/carafate for significant gastropathy
-follow up Bxs from EGD
-advanced to full liquid diet
Other problems:
Essential hypertension: cont amlodipine/ramipril
Hypothyroidism: cont levothyroxine
Hyponatremia, mild
Breast CA s/p mastectomy/chemo/radiation in 2005
prior EDILBERTO
PAD with carotid stents
DNR/SCD
Anticipated Discharge: Within 24 hours
Subjective/Interval History
-
Date of Service: August 05, 2024
No new complaints.
Objective Data
-
Vital Signs:
Vital Signs
Temp Pulse Resp BP Pulse Ox
97.7 F 65 16 105/58 97
08/05/24 11:05 08/05/24 11:05 08/05/24 11:05 08/05/24 11:05 08/05/24 11:05
I&O
08/04/24 08/05/24 08/06/24
06:59 06:59 06:59
Intake Total 0 / 0 1440 / 1440
Balance 0 / 0 1440 / 1440
[2024-08-05] MEDS: CARAFATE 1 GRAM PO (11:59)
--- NOTE | 2024-08-05 12:44 | CM ---
CM following re: discharge planning. Reviewed pt's chart, met with pt.
Discharge order noted. Pt is aware, expressed her agreement. IMM reviewed , placed on chart, pt has a copy.
PT and OT evaluations noted - home PT/OT recommended. Per CM note from yesterday an referral to [facility] made
Please fax discharge instructions to [facility] at [phone]
D/C plan: home with [facility] and family support. Son to transport.
--- NOTE | 2024-08-05 13:53 | W.DCSUMMARY ---
Discharge Summary
Discharge Data
Date of Admission: 08/02/24
Date of Discharge: 08/05/24
-
Pending Results: Yes
Additional Pending Results:
Biopsies from EGD
Hospital Course
Primary diagnoses:
Mechanical fall resulting in left eyebrow laceration
Dysphagia due to benign-appearing esophageal stenosis
Secondary diagnoses:
Essential hypertension
Hypothyroidism
Hyponatremia
Breast cancer s/p mastectomy/chemo/radiation in 2005
prior iron deficiency anemia
Peripheral arterial disease with carotid stents
Consultants:
Gastroenterology
Imaging:
CT brain: No acute intracranial abnormality noted. Moderate atrophy with sequelae of mild small vessel ischemic disease.
EGD 08/03/24: Benign-appearing esophageal stenosis. Dilated.
Biopsied.
- Erythematous mucosa in the gastric body, antrum and
prepyloric region of the stomach. Biopsied.
- Friable gastric mucosa.
- Congestive gastropathy.
- Normal duodenal bulb, first portion of the duodenum
and second portion of the duodenum.
83-year-old female who presented with a chief complaint of fall as outlined in H&P done on admission. Hospital course by problem list:
Fall: Patient had a mechanical fall with a left eyebrow laceration that was sutured. Orthostatic vital signs were negative. This was likely a mechanical fall. She was seen by physical therapy and Occupational Therapy.
Dysphagia: Acute on chronic. Patient underwent EGD on 08/03/24 as above, benign-appearing esophageal stenosis dilated. She was placed on Protonix and Carafate considering her significant gastropathy. She will need to follow-up the biopsies from her
EGD. The patient was advanced to a full liquid diet and tolerated that diet prior to discharge. As per GI she is to be discharged on full liquid diet. She will have a follow-up EGD with esophageal dilation on August 24, 2024.
Discharge Plan
-
Patient Disposition: Home (Routine Discharge)
Discharge Diagnosis/Procedures: Dysphagia due to benign-appearing esophageal stenosis, mechanical fall with left eyebrow laceration
Diet: Other diet
Additional Diets: full liquids with ensure TID
Activity Restrictions/Additional Instructions:
Wound Care Instructions
L eyebrow: clean with soap and water, apply thin layer of Vaseline daily.
You are scheduled for repeat EGD with dilation on August 24, 2024
Referrals:
Vijay Ha MD [Family Provider] - in less than 1 week
Haven Davis DO [Active] - 08/31/24 7:30 am (Our schedulers will also call you to schedule a repeat Endoscopy with dilation on 08/24. )
Prescriptions:
New
polyethylene glycol 3350 17 gram Powder In Packet
17 g PO DAILY Qty: 30 0RF
pantoprazole 40 mg Tablet,Delayed Release (Dr/Ec)
40 mg PO DAILY Qty: 30 0RF
sucralfate 1 gram Tablet
1 g PO ACHS Qty: 120 0RF
Continued
levothyroxine 25 mcg Tablet
25 mcg PO DAILY
amlodipine 10 mg Tablet
10 mg PO DAILY
ramipril 5 mg Capsule
5 mg PO BID
cyclosporine [Restasis] 0.05 % Dropperette
1 drp BOTH EYES Q12H
dorzolamide-timolol (PF) 2-0.5 % Dropperette
1 drp BOTH EYES BID
Discharge Orders:
Discharge Patient (As Directed); Ordered 08/05/24
Ordered By: Monster Coy
Discharge Date and Time
Print Language: MACEDONIAN
--- NOTE | 2024-08-08 15:41 | W.PN.UPDATE ---
Update Note
Progress Note Update
Called patient's son, Walt, to notify him of mother's pathology results, gastric biopsies positive for invasive adenocarcinoma, PD-L testing pending. Biopsies of esophageal stricture returned with benign gastric mucosa w/ features suggestive of
fundic gland polyps. He would prefer to tell his mom directly as he handles all of her care. They would like me to set up consultation with [facility]. All questions answered.
--- NOTE | 2024-08-09 14:45 | PN.CDI ---
CDI
- -
CDI:
Physician Documentation Request
Admit Date: 08/04/24 12:55
Dear Doctor Leno,
Please review the following and provide your response in the progress notes.
Clinical Indicators:
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
Please indicate in your progress notes if you are in agreement that the above diagnosis is valid for this patient:
____ - Invasive adenocarcinoma of the stomach is a valid diagnosis (Please include it in your progress notes)
____ - Invasive adenocarcinoma of the stomach is not a valid diagnosis for this patient
____ - Invasive adenocarcinoma of the stomach is not yet confirmed but remains a suspected condition
____ - Other
____ - Unable to determine
Use of terms such as suspected, likely, concern for, or probable are acceptable for a diagnosis that is being evaluated, monitored or treated as if it exists and can be coded in the inpatient setting, when documented at the time of discharge.
Thank you,
Lisa Roblero
[employer]
Please use your independent medical judgment in providing your response.
== END 2024-08-05 14:25 | disposition home or self-care (01) | DRG 392 ==
LOC: 1 ACUTE 12:55
PROVIDERS: Internal Medicine Gastroenterology; Nurse Practitioner Adult Health; Nurse Practitioner Family; ADMITTING PHYSICIAN Internal Medicine; ATTENDING PHYSICIAN Internal Medicine; EMERGENCY PHYSICIAN Emergency Medicine; FAMILY PHYSICIAN Family Medicine; OTHER PHYSICIAN Internal Medicine
PROC: 0DB78ZX Excision of Stomach, Pylorus, Via Natural or Artificial Opening Endoscopic, Diagnostic (ICD-10-PCS; 2024-08-03)
PROC: 0D758ZZ Dilation of Esophagus, Via Natural or Artificial Opening Endoscopic (ICD-10-PCS; 2024-08-03)
DX: K22.2 Esophageal obstruction (principal); C78.89 Secondary malignant neoplasm of other digestive organs; E87.1 Hypo-osmolality and hyponatremia; C16.9 Malignant neoplasm of stomach, unspecified; K31.89 Other diseases of stomach and duodenum; I10 Essential (primary) hypertension; E03.9 Hypothyroidism, unspecified; Z66 Do not resuscitate; E86.1 Hypovolemia; S01.112A Laceration without foreign body of left eyelid and periocular area, initial encounter; W01.0XXA Fall on same level from slipping, tripping and stumbling without subsequent striking against object, initial encounter; I73.9 Peripheral vascular disease, unspecified; Z85.3 Personal history of malignant neoplasm of breast; Z90.11 Acquired absence of right breast and nipple; Z92.21 Personal history of antineoplastic chemotherapy; Z92.3 Personal history of irradiation
CPT/HCPCS: 88305; 12011; 70450; 80048; 80053; 85025; 85027; 85610; 88342; 88360; 93005; 96360; 97116; 97162; 97166; 97530; 99285; C1726

== ENCOUNTER → 2024-08-24 09:27 | Outpatient (REF) | payer MEDICARE, SELFPAY ==
[2024-08-24 10:05] LABS: % Basophils 0.2 % (0-2); % Eosinophils 1.2 % (0-6); % Immature Granulocytes 0.3 % (0-0.5); % Lymphocytes 5.9 % (20.5-51.1); % Monocytes 8.3 % (1.7-9.3); % Neutrophils 84.1 % (42.2-75.2); Absolute Eosinophils 0.1 10^3/uL (0-0.7); Absolute Lymphocytes 0.6 10^3/uL (1.2-3.4); Absolute Monocytes 0.8 10^3/uL (0.1-0.6); Absolute Neutrophils 8.4 10^3/uL (1.4-6.5); Hematocrit 26.6 % (37.0-47.0); Hemoglobin 9.5 g/dL (12.0-16.0); Mean Corp Hgb Conc. 35.7 g/dL (33.0-37.0); Mean Corpuscular Hgb 28.8 pg (27.0-31.0); Mean Corpuscular Volume 80.6 fL (81.0-99.0); Mean Platelet Volume 8.8 fL (7.4-10.4); Nucleated Red Blood Cells % 0 %; Platelet Count 389 10^3/uL (130-400); Red Cell Dist. Width 13.8 % (11.5-14.5)
[2024-08-24 10:10] LABS: INR 1.04; PT 13.9 Sec (11.4-14.6)
[2024-08-24 10:17] VITALS: BP 142/63; BP_SYST 67
[2024-08-24 10:41] LABS: Albumin 3.5 g/dl (3.5-5.0); Carbon Dioxide 20 mmol/L (22-30); Total Protein 6.6 g/dl (6.3-8.2); eGFR > 60.00
[2024-08-24 10:52] LABS: ALT (SGPT) 17 U/L (0-35); AST (SGOT) 24 U/L (14-36); Alkaline Phosphatase 101 U/L (38-126); Blood Urea Nitrogen 22 mg/dl (7-17); Calcium 9.4 mg/dl (8.4-10.2); Chloride 99 mmol/L (98-107); Glucose 90 mg/dl (70-99); Potassium 4.6 mmol/L (3.5-5.1); Sodium 130 mmol/L (135-145); Total Bilirubin 0.7 mg/dl (0.2-1.3)
[2024-08-24 11:52] VITALS: BMI 19.7
== END ==
LOC: RADI 09:27
PROVIDERS: ATTENDING PHYSICIAN Internal Medicine Hematology & Oncology; FAMILY PHYSICIAN Family Medicine
DX: R18.8 Other ascites (principal); K76.89 Other specified diseases of liver; D68.8 Other specified coagulation defects; J90 Pleural effusion, not elsewhere classified; Z53.8 Procedure and treatment not carried out for other reasons
CPT/HCPCS: 36415; 76380; 76705; 80053; 85025; 85610

== ENCOUNTER → 2024-08-27 09:23 | Outpatient (REF) | payer MEDICARE, SELFPAY ==
[2024-08-27] VITALS (8 sets, daily range): BP systolic 65–140; BP diastolic 54–72
== END ==
LOC: RADI 09:23
PROVIDERS: ATTENDING PHYSICIAN Internal Medicine Hematology & Oncology
DX: C77.0 Secondary and unspecified malignant neoplasm of lymph nodes of head, face and neck (principal); C50.919 Malignant neoplasm of unspecified site of unspecified female breast; C16.9 Malignant neoplasm of stomach, unspecified
CPT/HCPCS: 88305; 38505; 76942; 88333; 88341; 88342; 88360

== ENCOUNTER 2024-09-03 06:20 | Day surgery (SDC) | payer MEDICARE, SELFPAY ==
[2024-09-03] VITALS (24 sets, daily range): BP systolic 104–185; BP diastolic 68–101; BMI 19.4
[2024-09-03] MEDS: MORPHINE SULFATE 2 MG IV ×2 (13:41→15:33)
[2024-09-03] MEDS: NSS (PRESERVATIVE FREE) 8 ML IV (13:55)
[2024-09-03] MEDS: PEPCID 20 MG IV (13:56)
--- NOTE | 2024-09-03 14:08 | PTCARENOTE ---
Pt seen by anesthesia and by Dr. Burr. Pt's son at this time uncomfortable taking her home with her complaining of pain. Pt is belching, and sleepy but easily arousable.
--- NOTE | 2024-09-03 15:04 | PTCARENOTE ---
Pt's son approached, asked for more pain medication for his mother. Reached out to Anesthesia and Dr. Burr in regards to this. Pt's mother sleeping, occasionally grimacing.
--- NOTE | 2024-09-03 16:08 | HPS.HSE ---
Family Physician
-
Family Physician: NO INTERVIEW UNKNOWN
Chief Complaint
-
Chest pressure
History of Present Illness
83-year-old female underwent esophageal dilation for stenosis today and subsequently developed chest pressure afterwards. Denies chest pressure or symptoms prior to procedure. Denies shortness of breath. Also complaining of mild headache and
dizziness.
Medical History
Past Medical History
Past Medical History: Reports Other
Additional Past Medical History:
Esophageal stenosis
CAD -3 stents. Last was placed in 2009.
Metastatic breast cancer
Gastric cancer
Essential hypertension
Hypothyroidism
Carotid stents
Chronic anemia
Congestive heart failure
GERD
Glaucoma
Osteoporosis
Anxiety disorder
Past Surgical History: Reports Other
Additional Past Surgical History:
Right mastectomy
3 coronary stents
Left hip replacement
Left elbow surgery
Right wrist surgery
Bilateral shoulder replacement
Social History
Tobacco: Non-smoker
Alcohol: None
Drug: None
Living: With Family
Family History
Family History: Cancer (Father)
Allergies / Home Medications
Allergies reflects when Allergies were last updated in [facility].
Home Medications with original date entered in [facility]
Allergy/Medication List:
Allergies
Allergy/AdvReac Type Severity Reaction Status Date / Time
No Known Allergies Allergy Unverified 09/03/24 09:23
Home Medications
amlodipine 10 mg tablet 10 mg PO DAILY 08/02/24
cyclosporine 0.05 % eye drops in a dropperette (Restasis) 1 drp BOTH EYES Q12H 08/02/24
dorzolamide-timolol (PF) 2 %-0.5 % eye drops in a dropperette 1 drp BOTH EYES BID 08/02/24
levothyroxine 25 mcg tablet 25 mcg PO DAILY 08/02/24
ramipril 5 mg capsule 5 mg PO BID 08/02/24
pantoprazole 40 mg tablet,delayed release 40 mg PO DAILY #30 tabs 08/05/24
polyethylene glycol 3350 17 gram oral powder packet 17 g PO DAILY #30 ea 08/05/24
sucralfate 1 gram tablet 1 g PO ACHS #120 tabs 08/05/24
Review of Systems
-
History Source: Patient
A 12 point ROS was completed and negative except as noted: Yes
Cardiac: Reports Chest Pain
Neurological: Reports Dizzy and Headache
Physical Exam
Vital Signs
Vital Signs
Temp Pulse Resp BP Pulse Ox
97.3 F 69 16 154/81 100
09/03/24 09:16 09/03/24 14:30 09/03/24 14:30 09/03/24 14:15 09/03/24 14:30
Physical Exam
General: Appears in Distress and Cachectic
HEENT: NormoCephalic, Anicteric and Moist mucous membranes
Respiratory: Clear
Cardiac: S1/S2 and Regular Rhythm
Breast: Other (Right breast implant)
GI: Soft, Non Tender and Non Distended
Genito-urinary: Deferred by me
Musculoskeletal: No Clubbing, No Cyanosis and No Edema
Skin: Warm and Dry
Neuro: AO x 3
Hematologic/Lymphatic: No Lymphadenopathy
Psych: Calm
Impression/Plan
-
Chest pressure -onset after esophageal dilation today. EKG with nonspecific changes. Check troponins. Admit to telemetry observation.
Check CT chest & abdomen with contrast, rule out esophageal perforation or other etiology.
IV Protonix. IV fluids. N.p.o. until esophageal perforation ruled out.
Esophageal stenosis -benign-appearing on EGD today. Dilated and biopsied.
CAD -with history of 3 stents. Apparently her aspirin was discontinued a few months ago for unclear reasons. Patient's son states that it was stopped by her GI physician due to esophageal stenosis. I recommend speaking with her training systems officer
before permanently discontinuing.
Metastatic breast cancer -she just had right supraclavicular lymph node biopsy August 27 that unfortunately is positive for metastatic mammary adenocarcinoma. She follows up with Dr. Llanos.
Essential hypertension -stable.
Hypothyroidism -levothyroxine.
Chronic anemia -suspect related to malignancy. CBC pending.
Hyponatremia -noted on previous labs. CMP pending.
Full code
Updated patient's son at the bedside.
--- NOTE | 2024-09-03 16:28 | PTCARENOTE ---
Pt resting calmly, sleeping intermittently. Pt's son at bedside, on speaker phone with family throughout afternoon. Pt continues on monitor
[2024-09-03 17:50] LABS: % Basophils 0.5 % (0-2); % Eosinophils 0.6 % (0-6); % Immature Granulocytes 0.2 % (0-0.5); % Lymphocytes 12.3 % (20.5-51.1); % Monocytes 8.8 % (1.7-9.3); % Neutrophils 77.6 % (42.2-75.2); Absolute Lymphocytes 0.8 10^3/uL (1.2-3.4); Absolute Monocytes 0.6 10^3/uL (0.1-0.6); Absolute Neutrophils 5.1 10^3/uL (1.4-6.5); Hematocrit 29.4 % (37.0-47.0); Hemoglobin 10.2 g/dL (12.0-16.0); Mean Corp Hgb Conc. 34.7 g/dL (33.0-37.0); Mean Corpuscular Hgb 28.5 pg (27.0-31.0); Mean Corpuscular Volume 82.1 fL (81.0-99.0); Mean Platelet Volume 8.9 fL (7.4-10.4); Nucleated Red Blood Cells % 0 %; Platelet Count 382 10^3/uL (130-400); Red Blood Cell Count 3.58 10^6/uL (4.20-5.40); Red Cell Dist. Width 14.5 % (11.5-14.5); White Blood Cell Count 6.5 10^3/uL (4.8-10.8)
[2024-09-03] MEDS: OMNIPAQUE 50 ML PO (17:58)
[2024-09-03] MEDS: ZOFRAN 4 MG IV (18:02)
[2024-09-03 18:04] LABS: ALT (SGPT) 20 U/L (0-35); AST (SGOT) 28 U/L (14-36); Albumin 3.7 g/dl (3.5-5.0); Alkaline Phosphatase 113 U/L (38-126); Blood Urea Nitrogen 18 mg/dl (7-17); Calcium 8.7 mg/dl (8.4-10.2); Carbon Dioxide 20 mmol/L (22-30); Chloride 104 mmol/L (98-107); Estimated Creatinine Clearance 48 ml/min; Glucose 102 mg/dl (70-99); Potassium 3.9 mmol/L (3.5-5.1); Sodium 135 mmol/L (135-145); Total Bilirubin 0.6 mg/dl (0.2-1.3); Total Protein 6.6 g/dl (6.3-8.2); eGFR > 60.00
[2024-09-03 18:14] LABS: Troponin I < 0.012 ng/ml
--- NOTE | 2024-09-03 18:22 | SUR.OPER ---
@ 0563, sent TT to Dr. Adams and Dr. Burr, pt's son asking for more pain medication right now.
[2024-09-03] MEDS: ALTACE PO (19:30)
[2024-09-03] MEDS: NSS (PRESERVATIVE FREE) IV (19:30)
[2024-09-03] MEDS: PROTONIX IV IV (19:30)
--- NOTE | 2024-09-03 19:42 | PTCARENOTE ---
Transferred pt to CT scan on monitor and to 2101. Bedside report given to Carmen DON. Pt's belongings with pt. Pt tolerated well. Pt conversing displayed no signs or symptoms of distress or discomfort.
[2024-09-03] MEDS: CARAFATE SUSPENSION PO (20:55)
[2024-09-03] MEDS: 0.45%NACL 1000 IV (21:57)
[2024-09-03] MEDS: LOVENOX 30 MG SC (22:00)
[2024-09-03] MEDS: CARAFATE SUSPENSION 1 GM PO (23:13)
[2024-09-03 23:19] LABS: Troponin I < 0.012 ng/ml
--- NOTE | 2024-09-03 23:29 | TRANSFER ---
Received bedside report from ARIAN Marshall at 1930 - pt dx esophageal dilation post op chest pressure. pt denies chest pain/ pressure at this time. Pt AAOx4 able to make all needs known. Assessment as documented. Call estrella within reach, bed in lowest
position. IVF as ordered.
[2024-09-04 03:05] VITALS: BP 142/74
[2024-09-04] MEDS: SYNTHROID 25 MCG PO (05:48)
[2024-09-04 07:30] VITALS: BP 137/76
[2024-09-04 08:23] LABS: Hematocrit 24.3 % (37.0-47.0); Hemoglobin 8.4 g/dL (12.0-16.0); Mean Corp Hgb Conc. 34.6 g/dL (33.0-37.0); Mean Corpuscular Hgb 28.4 pg (27.0-31.0); Mean Corpuscular Volume 82.1 fL (81.0-99.0); Mean Platelet Volume 9.6 fL (7.4-10.4); Platelet Count 309 10^3/uL (130-400); Red Blood Cell Count 2.96 10^6/uL (4.20-5.40); Red Cell Dist. Width 14.6 % (11.5-14.5); White Blood Cell Count 5.1 10^3/uL (4.8-10.8)
[2024-09-04] MEDS: ALTACE 5 MG PO ×2 (08:46→21:45)
[2024-09-04] MEDS: PROTONIX IV 40 MG IV (08:46)
[2024-09-04] MEDS: CARAFATE SUSPENSION 1 GM PO ×3 (08:46→21:46)
[2024-09-04] MEDS: NORVASC 10 MG PO (08:46)
[2024-09-04] MEDS: NSS (PRESERVATIVE FREE) 10 ML IV (08:47)
--- NOTE | 2024-09-04 09:04 | CON.GI ---
Addendum entered and electronically signed by Carmen Way DO 09/04/24 14:08:
Patient seen examined independently of the physicians horticultural nursery assistant. Agree with her note with additions below
Mrs. Dodge is an 83-year-old female with history of metastatic breast cancer status post chemo and radiation in 2005, recently diagnosed with gastric adenocarcinoma was here yesterday as an outpatient to undergo EGD and EUS for gastric staging to
help guide oncology. Patient had a recent lymph node biopsy that was positive for recurrent breast cancer and therefore figuring out gastric versus breast is helpful in guiding therapy. Unfortunately yesterday it appears there is some wall
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 Dr. Burr dilated the area in order to get the endoscopic ultrasound through the GE junction but was
unsuccessful. Biopsies were taken throughout the stomach but the endoscopic ultrasound was not accomplished. Biopsies were taken from the cardia throughout the stomach. When the patient awoke she felt chest pain and therefore was admitted. She
underwent CT scan that did not show perforation but did show a mildly dilated thoracic esophagus. Also had a moderate left pleural effusion and widespread hepatic small lesions consistent with metastatic disease as seen on her recent PET scan.
Also gastric wall thickening. Moderate volume colonic stool. No obstruction.
I spoke to the family for about 45 minutes including showing them the endoscopic pictures, drawing pictures and explaining what is going on. 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
stomach which involves the GE junction. Since this will likely progress it will worsen her dysphagia. She is going to fill early satiety for both reasons including the gastric cancer and the narrowing of the esophagus.
She is still complaining of some chest discomfort. I explained to her that narcotics are can worsen her constipation.
I reviewed the speech therapy notes and the patient did not want to try any solids but did not have any aspiration with liquids
I reviewed the nutrition notes and have also contacted nutrition: I did send this message to the surgical training specialist who saw her today: is there anyway you can give something to the family to help guide them with daily nutrition? she's ok to eat any
soft/well chewed/small particle meals - very small bites/very slow. likely has gastric cancer encircling her GEjunction that is preventing food from going down well so more liquid based would be best. Also, she has gastric cancer so will feel very
full fast.'
Overall, likely discharge soon with outpatient follow-up with Dr. Llanos. Biopsies are pending
I did discuss with the patient there are very few options to help with nutrition here except optimizing her oral nutrition. The potential to stent the area is there pending the results of the biopsies but also depending on what therapy like
radiation may be in the future this may or may not be an option. She has some mild ascites on CT scan and putting a PEG tube in the stomach is not okay in the setting of gastric cancer. Potential for jejunal tube feeds if the ascites is not
significant
Original Note:
Consultation
-
Date/Time Consultation Requested: 09/03/24 1604
Date/Time Consultation Performed: 09/04/24 0900
Requesting Provider: Dr Nunn
Performing Provider: Dr Way / Joana Nguyen PA-C
Reason for Consultation: chest pain following EGD/EUS
Medical History
Chief Complaint / HPI
Chief Complaint: chest pain, nausea, vomiting
History of Present Illness:
This is an 83 year old female with a past medical history of metastatic breast cancer (s/p mastectomy, chemotherapy, radiation in 2005), EDILBERTO, HTN, hypothyroidism, carotid stents, with esophageal stenosis and recently diagnosed gastric cancer who
underwent EGD/EUS with Dr. Burr yesterday 09/03/24 and complained of chest pain, nausea and vomiting post-procedure. EGD was performed with successful dilation of the esophageal stenosis and biopsies were taken of both the esophagus as well as the
malignant gastric tumor. EUS was performed and showed wall thickening of the GE junction but was unable to traverse the esophageal stricture. Patient tolerated the procedure well, but started to complain of chest pressure and was admitted for
continued observation. EKG showed nonspecific changes. Negative troponins. She denies any associated shortness of breath. No abdominal pain, fever or chills. Patient follows with Oncology Dr. Llanos and had a recent lymph node biopsy that was
positive for metastatic mammary adenocarcinoma. Labs reviewed: WBC 5.1, Hgb 8.4, platelets 309, BUN 17, creatinine 0.5. She is hemodynamically stable.
Past Medical History
Past Medical History: Other ( metastatic breast cancer (s/p mastectomy, chemotherapy, radiation in 2005), EDILBERTO, HTN, hypothyroidism, carotid stents, with esophageal stenosis and recently diagnosed gastric cancer )
Past Surgical History: Other (Right mastectomy, 3 coronary stents, Left hip replacement, Left elbow surgery, Right wrist surgery, Bilateral shoulder replacement)
Social History
Tobacco: Non-Smoker
Alcohol: None
Drug: None
Living: With Family
Allergies / Home Medications
Allergy/AdvReac Type Severity Reaction Status Date / Time
No Known Allergies Allergy Unverified 09/03/24 09:23
�Medication �Instructions �Recorded
amlodipine 10 mg tablet 10 mg PO DAILY 08/02/24
cyclosporine 0.05 % eye drops in a 1 drp BOTH EYES Q12H 08/02/24
dropperette (Restasis)
dorzolamide-timolol (PF) 2 %-0.5 % 1 drp BOTH EYES BID 08/02/24
eye drops in a dropperette
levothyroxine 25 mcg tablet 25 mcg PO DAILY 08/02/24
ramipril 5 mg capsule 5 mg PO BID 08/02/24
pantoprazole 40 mg tablet,delayed 40 mg PO DAILY #30 tabs 08/05/24
release
polyethylene glycol 3350 17 gram 17 g PO DAILY #30 ea 08/05/24
oral powder packet
sucralfate 1 gram tablet 1 g PO ACHS #120 tabs 08/05/24
Review of Systems
-
History Source: Patient
All other systems: A 12 pt ROS was Negative except as stated above in HPI
Vital Signs
Temp Pulse Resp BP Pulse Ox
97.7 F 76 18 137/76 99
09/04/24 07:30 09/04/24 07:30 09/04/24 07:30 09/04/24 07:30 09/04/24 07:30
Physical Exam
Exam
General: No Apparent Distress and Other (thin, frail-appearing, in no acute distress)
Respiratory: Clear
Cardiac: Regular Rhythm
GI: Soft, Non Tender, Non Distended and Normal Bowel Sounds
Skin: Warm and Dry
Neuro: AO x 3
Psych: Calm
Results
WBC 5.1 10^3/uL (4.8-10.8) 09/04/24 07:48
Hgb 8.4 g/dL (12.0-16.0) L 09/04/24 07:48
Hct 24.3 % (37.0-47.0) L 09/04/24 07:48
MCV 82.1 fL (81.0-99.0) 09/04/24 07:48
Plt Count 309 10^3/uL (130-400) 09/04/24 07:48
Absolute Neuts (auto) 5.1 10^3/uL (1.4-6.5) 09/03/24 17:37
Sodium 135 mmol/L (135-145) 09/03/24 17:37
Potassium 3.9 mmol/L (3.5-5.1) 09/03/24 17:37
Chloride 104 mmol/L (98-107) 09/03/24 17:37
Carbon Dioxide 20 mmol/L (22-30) L 09/03/24 17:37
BUN 18 mg/dl (7-17) H 09/03/24 17:37
Creatinine 0.4 mg/dL (0.6-1.0) L 09/03/24 17:37
Calcium 8.7 mg/dl (8.4-10.2) 09/03/24 17:37
Total Bilirubin 0.6 mg/dl (0.2-1.3) 09/03/24 17:37
AST 28 U/L (14-36) 09/03/24 17:37
ALT 20 U/L (0-35) 09/03/24 17:37
Alkaline Phosphatase 113 U/L (38-126) 09/03/24 17:37
Diagnostic Image Results:
Prior GI Procedures:
09/03/24 EGD (Dr Burr)
Benign-appearing esophageal stenosis. Dilated.
Biopsied.
- Malignant gastric tumor in the prepyloric region of
the stomach, on the lesser curvature of the gastric
body and in the gastric antrum. It also involved
cardia. Biopsied from cardia.
- Normal duodenal bulb, first portion of the duodenum
and second portion of the duodenum.
Recommendation: - Await pathology results. If biopsy from cardia shows
adenocarcinoma, this would be consistent with
pseudoachalasia from infiltrating carcinoma.
- Await pathology results.
- Perform an upper endoscopic ultrasound (UEUS) today.
09/03/24 EUS (Dr Burr)
Wall thickening was seen in the gastroesophageal
junction. The thickening appeared to primarily be
within the deep mucosa (Layer 2) and muscularis
propria.
- Multiple attempts were made to advance the
echoendoscope but failed to traverse the esophageal
stricture.
- Ascites was found on endosonographic examination of
the peritoneal cavity.
- No specimens collected.
08/03/24 EGD (Dr Burr)
Benign-appearing esophageal stenosis. Dilated.
Biopsied.
- Erythematous mucosa in the gastric body, antrum and
prepyloric region of the stomach. Biopsied.
- Friable gastric mucosa.
- Congestive gastropathy.
- Normal duodenal bulb, first portion of the duodenum
and second portion of the duodenum.
*PATHOLOGY: GE junction biopsies benign, gastric biopsies showed invasive adenocarcinoma
*Path supplemental report:
Upon further review, in light of the patient�s metastatic breast cancer, additional
immunohistochemical stains were performed. The tumor cells are positive for SHAILA-3 and ER
and are focally positive for KS (less than 1%). They are negative for CK7. This immunoprofile is
similar to that seen in the patient�s current supraclavicular lymph node biopsy. As such, this
appears to represent a metastasis from the patient�s known carcinoma of the breast rather than a
gastric primary.
Assessment / Plan
-
83 year old female with a history of metastatic breast cancer (s/p mastectomy, chemotherapy, radiation in 2005), EDILBERTO, HTN, hypothyroidism, carotid stents, with esophageal stenosis and recently diagnosed gastric cancer who underwent EGD/EUS with
Leno yesterday 09/03/24 and complained of chest pain, nausea and vomiting post-procedure. Labs reviewed: WBC 5.1, Hgb 8.4, platelets 309, BUN 17, creatinine 0.5. She is hemodynamically stable.
IMPRESSION / PLAN:
Chest pain, post-EGD/EUS 09/03/24
- patient had negative EKG and troponins
- she complains of a new chest 'pressure' after eating since EGD/EUS yesterday with nausea
- known metastatic gastric cancer and esophageal stenosis (s/p endoscopic dilation)
- continue IV fluids and antiemetics
- Speech has also been consulted
- established with Oncology (Dr Llanos)
-
-
Thank you for consultation and allowing me to participate in the patient's care. Please call the transfusion nurse GI physician during the after hours with any questions or concerns.
--- NOTE | 2024-09-04 09:25 | W.PN.HOSP.TC ---
Today's Communication/Plan
-
N.p.o.
Speech consult
GI consult
IV fluids
Assessment / Plan
Assessment / Plan
Gen-AAOx3, NAD
HEENT-NC, AT, anicteric, clear oral mm
Neck-supple
CV-reg, no M, +S1/S2
Lungs-clear B/L
Abd-soft, NT, ND
Ext-no edema
Musculoskeletal-no cyanosis, clubbing
Skin-warm and dry
Neuro-grossly non-focal
Psych-calm, cooperative
Chest pressure -onset after esophageal dilation September 03. No esophageal perforation noted on CT.
Still symptomatic today with oropharyngeal dysphagia. Will change to n.p.o. and consult speech therapy. GI consulted.
Hold oral medications until seen by speech therapy. Discussed with nursing.
Esophageal stenosis -benign-appearing on EGD 09/03. Dilated and biopsied.
CAD -with history of 3 stents. Apparently her aspirin was discontinued a few months ago for unclear reasons. Patient's son states that it was stopped by her GI physician due to esophageal stenosis. I recommend speaking with her medical professionals
before permanently discontinuing.
Gastric cancer -patient's son to bring in home medication list including chemotherapy.
Metastatic breast cancer -she just had right supraclavicular lymph node biopsy August 27 that unfortunately is positive for metastatic mammary adenocarcinoma. She follows up with Dr. Llanos.
Essential hypertension -stable.
Hypothyroidism -levothyroxine.
Chronic anemia -suspect related to malignancy. Hemoglobin down this morning, 8.4, suspect hemodilution from IV fluids. No evidence of bleeding.
Hyponatremia -improved.
Full code
Anticipated Discharge: 24 - 48 hours
Subjective/Interval History
-
Date of Service: September 04, 2024
Patient seen and examined. Complaining of chest discomfort and dysphagia.
Objective Data
-
Labs:
Laboratory Results
09/04/24 09/04/24
07:48 09:05
WBC 5.1
Hgb 8.4 L
Hct 24.3 L
Plt Count 309
Sodium Cancelled Pending
Potassium Cancelled Pending
Chloride Cancelled Pending
Carbon Dioxide Cancelled Pending
BUN Cancelled Pending
Creatinine Cancelled Pending
Glucose Cancelled Pending
Calcium Cancelled Pending
Vital Signs:
Vital Signs
Temp Pulse Resp BP Pulse Ox
97.7 F 76 18 137/76 99
09/04/24 07:30 09/04/24 07:30 09/04/24 07:30 09/04/24 07:30 09/04/24 07:30
I&O
09/03/24 09/04/24 09/05/24
06:59 06:59 06:59
Intake Total 550 / 550
Balance 550 / 550
Review of Systems
-
History Source: Patient
All other systems: Reviewed and negative
[2024-09-04 09:45] VITALS: BMI 19.4
[2024-09-04 10:10] LABS: Blood Urea Nitrogen 17 mg/dl (7-17); Calcium 8.7 mg/dl (8.4-10.2); Carbon Dioxide 21 mmol/L (22-30); Chloride 103 mmol/L (98-107); Estimated Creatinine Clearance 48 ml/min; Glucose 103 mg/dl (70-99); Potassium 3.8 mmol/L (3.5-5.1); Sodium 133 mmol/L (135-145); eGFR > 60.00
[2024-09-04 11:15] VITALS: BP 156/82
[2024-09-04] MEDS: CARAFATE SUSPENSION PO (11:54)
[2024-09-04] MEDS: DULCOLAX 10 MG RECTAL (12:11)
[2024-09-04] MEDS: 0.45%NACL 1000 IV (12:11)
--- NOTE | 2024-09-04 12:38 | PTOTSP ---
Speech Therapy
Previous diet: Patient reports puree solids and thin liquids with 2 Ensures a day for nutrition at home.
Swallowing complaints: Patient stated her esophageal stenosis is causing difficulty with swallowing, vomiting, pain, and discomfort. Patient reports vomiting after PO this AM, nurse denied.
Swallowing Function: SSDS MK 2 ADVANCED OPERATOR observed patient with ice chips and thin liquids (tsp, cup) in which patient appeared to tolerate as she did not exhibit any overt clinical s/sx of aspiration or vomiting. SSDS MK 2 ADVANCED OPERATOR attempted to trial puree solids but patient
denied solid trials due to discomfort and fear of vomiting.
Given the above, recommend trial of thin liquids (soups, Ensure, thin liquid drinks) for nutrtition. SSDS MK 2 ADVANCED OPERATOR will trial solids at a later time. Of note, patient is Vegetarian.
Recommendations:
1) trial of thin liquid diet (no solids trialed during assessment) PATIENT IS VEGETARIAN
2) consideration of Ensure
3) aspiration and reflux precautions
4) medications as tolerated
Plan: SSDS MK 2 ADVANCED OPERATOR will continue to follow; pending hospitalization.
[2024-09-04] MEDS: RESTASIS 0.05% OPHTHALMIC EMULSION 1 DROPS BOTH EYES (13:46)
[2024-09-04] MEDS: FEMARA 2.5 MG PO (13:46)
[2024-09-04] MEDS: PEPCID 20 MG PO (13:46)
[2024-09-04 15:05] VITALS: BP 144/74
[2024-09-04] MEDS: [UNRECOGNIZED DRUG - OTHER] 37 ML RECTAL (17:15)
[2024-09-04] MEDS: LOVENOX 30 MG SC (17:15)
[2024-09-04 19:25] VITALS: BP 136/72
[2024-09-04] MEDS: TRUSOPT 2% OPHTHALMIC SOLUTION 1 DROP BOTH EYES (21:47)
[2024-09-04] MEDS: TIMOPTIC 0.5% OPHTHALMIC SOLUTION 1 DROP BOTH EYES (21:48)
[2024-09-04 23:15] VITALS: BP 152/87
[2024-09-05] MEDS: 0.45%NACL 1000 IV (02:57)
[2024-09-05] MEDS: RESTASIS 0.05% OPHTHALMIC EMULSION 1 DROPS BOTH EYES (02:59)
[2024-09-05 03:00] VITALS: BP 155/95
[2024-09-05] MEDS: SYNTHROID 25 MCG PO (06:33)
[2024-09-05 06:41] LABS: Blood Urea Nitrogen 15 mg/dl (7-17); Calcium 8.6 mg/dl (8.4-10.2); Carbon Dioxide 22 mmol/L (22-30); Chloride 100 mmol/L (98-107); Estimated Creatinine Clearance 48 ml/min; Glucose 129 mg/dl (70-99); Sodium 130 mmol/L (135-145); eGFR > 60.00
[2024-09-05 07:05] VITALS: BP 165/92
[2024-09-05] MEDS: NSS (PRESERVATIVE FREE) 10 ML IV (09:07)
[2024-09-05] MEDS: PEPCID 20 MG PO (09:07)
[2024-09-05] MEDS: NORVASC 10 MG PO (09:07)
[2024-09-05] MEDS: CARAFATE SUSPENSION 1 GM PO (09:07)
[2024-09-05] MEDS: ALTACE 5 MG PO (09:07)
[2024-09-05] MEDS: FEMARA 2.5 MG PO (09:07)
[2024-09-05] MEDS: TRUSOPT 2% OPHTHALMIC SOLUTION 1 DROP BOTH EYES (09:08)
[2024-09-05] MEDS: PROTONIX IV 40 MG IV (09:08)
[2024-09-05] MEDS: TIMOPTIC 0.5% OPHTHALMIC SOLUTION 1 DROP BOTH EYES (09:08)
--- NOTE | 2024-09-05 10:02 | W.PN.HOSP.TC ---
Addendum entered and electronically signed by Jesus Nunn DO 09/05/24 13:31:
Updated patient's son on the phone.
Nursing to provide nutrition education regarding full liquid diet with supplements like Ensure.
Son to come in today and get teaching on diet and then discharge home today. Discussed with GI service and they agree with plan. Discussed with nursing and case management.
Outpatient follow-up.
Addendum entered and electronically signed by Jesus Nunn DO 09/05/24 10:07:
Correction: Continue amlodipine and ramipril.
Original Note:
Today's Communication/Plan
-
Nutrition consult for dietary education
PT/OT
Lisinopril
Assessment / Plan
Assessment / Plan
Gen-AAOx3, NAD
HEENT-NC, AT, anicteric, clear oral mm
Neck-supple
CV-reg, no M, +S1/S2
Lungs-clear B/L
Abd-soft, NT, ND
Ext-no edema
Musculoskeletal-no cyanosis, clubbing
Skin-warm and dry
Neuro-grossly non-focal
Psych-calm, cooperative
Chest pressure -onset after esophageal dilation September 03. No esophageal perforation noted on CT.
Symptoms improved. Full liquid diet as tolerated. Tariff Clerk consulted.
Esophageal stenosis -benign-appearing on EGD 09/03. Dilated and biopsied.
CAD -with history of 3 stents. Apparently her aspirin was discontinued a few months ago for unclear reasons. Patient's son states that it was stopped by her GI physician due to esophageal stenosis. I recommend speaking with her recruitment director
before permanently discontinuing.
Gastric cancer -encasing GE junction with achalasia picture according to GI. I spoke with Dr. Way. Follow-up with Dr. Llanos after discharge.
Metastatic breast cancer -she just had right supraclavicular lymph node biopsy August 27 that unfortunately is positive for metastatic mammary adenocarcinoma. She follows up with Dr. Llanos.
Essential hypertension -does not appear to be on medications at home. Can start lisinopril.
Hypothyroidism -levothyroxine.
Chronic anemia -suspect related to malignancy. CBC pending for today.
Chronic hyponatremia -130. Will send labs.
Full code
Anticipated Discharge: 24 - 48 hours
Subjective/Interval History
-
Date of Service: September 05, 2024
Patient seen and examined. Chest pressure resolved now complaining of abdominal discomfort.
Objective Data
-
Labs:
Laboratory Results
09/05/24
04:11
WBC Pending
Hgb Pending
Hct Pending
Plt Count Pending
Sodium 130 L
Potassium 4.0
Chloride 100
Carbon Dioxide 22
BUN 15
Creatinine 0.4 L
Glucose 129 H
Calcium 8.6
Vital Signs:
Vital Signs
Temp Pulse Resp BP Pulse Ox
97.6 F 84 16 165/92 96
09/05/24 07:05 09/05/24 07:05 09/05/24 07:05 09/05/24 07:05 09/05/24 07:05
I&O
09/04/24 09/05/24 09/06/24
06:59 06:59 06:59
Intake Total 550 / 550 3800 / 3800
Balance 550 / 550 3800 / 3800
Review of Systems
-
History Source: Patient
All other systems: Reviewed and negative
[2024-09-05 10:39] LABS: Osmolality Serum 272 mOsm/kg (275-300)
[2024-09-05 11:06] LABS: Cortisol, Random 13.3 ug/dl; TSH 2.48 uIU/ml (0.47-4.68)
--- NOTE | 2024-09-05 11:23 | CM ---
late note; Patient seen at bedside on yesterday at request of son. Patient lives with family in a 2 story home with elevator and rolling walker. Patient son states that they use the [facility] in [facility]. Patient PCP is "Roselia"Leland and they have been using [facility] home [facility] in the recent past, PT/Speach and OT. Patient family has signed up with [facility] and they have been working on resources to assist patient and family. Selin Herbert was
identified by family as someone that could have information and be a underground production foreperson. CM spoke with Selin and she is looking into resources for family of hospice and palliative care. Selin to review options with family. Patient for PT/OT assessment
to confirm level of care needed at discharge. Patient family very interested in taking patient home with VN; [facility] home health and possibly other aides. CM will continue to follow for discharge planning needs.
Plan; home with [facility] vs SNF; will need referrals pending level of care needed.
--- NOTE | 2024-09-05 11:56 | W.PN.GI.CBS2 ---
Today's Communication / Plan
-
- nutrition to see
- GI will sign off, once she has a nutrition plan, ok to go from a GI perspective
Assessment / Plan
-
Mrs. Dodge is an 83-year-old female with history of metastatic breast cancer status post chemo and radiation in 2005, recently diagnosed with gastric adenocarcinoma was here 09/03/24 as an outpatient to undergo EGD and EUS for gastric staging to help
guide oncology. Patient had a recent lymph node biopsy that was positive for recurrent breast cancer and therefore figuring out gastric versus breast is helpful in guiding therapy.
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 Dr. Burr dilated the area in order to get the endoscopic
ultrasound through the GE junction but was unsuccessful. Biopsies were taken throughout the stomach but the endoscopic ultrasound probe couldn't pass the GEJ.
When the patient awoke she felt chest pain and therefore was admitted. She underwent CT scan that did not show perforation but did show a mildly dilated thoracic esophagus. Also had a moderate left pleural effusion and widespread hepatic small
lesions consistent with metastatic disease as seen on her recent PET scan.
I spoke to the family for about 45 minutes on 09/04/24 including showing them the endoscopic pictures, drawing pictures and explaining what is going on. 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
cardia of the stomach which involves the GE junction. Since this will likely progress it will worsen her dysphagia. She is going to fill early satiety for both reasons including the gastric cancer and the narrowing of the esophagus.
She is still complaining of some chest discomfort. I explained to her that narcotics are can worsen her constipation.
I reviewed the nutrition notes and have also contacted nutrition: I did send a spotfluxt message to the director inbound sales who saw her on 09/04: is there anyway you can give something to the family to help guide them with daily nutrition? she's ok to eat
any soft/well chewed/small particle meals - very small bites/very slow. likely has gastric cancer encircling her GEjunction that is preventing food from going down well so more liquid based would be best. Also, she has gastric cancer so will feel
very full fast.'
Overall, likely discharge soon with outpatient follow-up with Dr. Llanos. Biopsies are pending
I did discuss with the patient there are very few options to help with nutrition here except optimizing her oral nutrition. The potential to stent the area is there pending the results of the biopsies but also depending on what therapy like
radiation may be in the future this may or may not be an option. She has some mild ascites on CT scan and putting a PEG tube in the stomach is not okay in the setting of gastric cancer. Potential for jejunal tube feeds if the ascites is not
significant
- discussed with Dr. Nunn
- reconsulted nutrition
Subjective
Subjective
Date of Service: September 05, 2024
Patient is sipping her Ensure. Still with early satiety and no appetite. Did have a bowel movement after the enema
Objective
Data Reviewed
Laboratory Data:
Laboratory Results
09/05/24 04:11
Laboratory Results
Total Bilirubin 0.6 mg/dl (0.2-1.3) 09/03/24 17:37
AST 28 U/L (14-36) 09/03/24 17:37
ALT 20 U/L (0-35) 09/03/24 17:37
Alkaline Phosphatase 113 U/L (38-126) 09/03/24 17:37
Vital Signs and I&O:
Vital Signs
Temp Pulse Resp BP Pulse Ox
97.6 F 84 16 165/92 96
09/05/24 07:05 09/05/24 07:05 09/05/24 07:05 09/05/24 07:05 09/05/24 07:05
I&O
09/04/24 09/05/24 09/06/24
06:59 06:59 06:59
Intake Total 550 / 550 3800 / 3800 240 / 240
Balance 550 / 550 3800 / 3800 240 / 240
Physical Exam
Physical Exam
HEENT: Anicteric
GI: Soft and Non Tender
Neuro: Non Focal
[2024-09-05 11:59] VITALS: BP 130/68
[2024-09-05 12:05] LABS: % Basophils 0.3 % (0-2); % Eosinophils 0.7 % (0-6); % Immature Granulocytes 0.3 % (0-0.5); % Lymphocytes 3.6 % (20.5-51.1); % Monocytes 10.5 % (1.7-9.3); % Neutrophils 84.6 % (42.2-75.2); Absolute Eosinophils 0.1 10^3/uL (0-0.7); Absolute Lymphocytes 0.5 10^3/uL (1.2-3.4); Absolute Monocytes 1.3 10^3/uL (0.1-0.6); Absolute Neutrophils 10.5 10^3/uL (1.4-6.5); Hematocrit 29.2 % (37.0-47.0); Hemoglobin 10.1 g/dL (12.0-16.0); Mean Corp Hgb Conc. 34.6 g/dL (33.0-37.0); Mean Corpuscular Hgb 28.1 pg (27.0-31.0); Mean Corpuscular Volume 81.1 fL (81.0-99.0); Mean Platelet Volume 9.9 fL (7.4-10.4); Nucleated Red Blood Cells % 0 %; Platelet Count 390 10^3/uL (130-400); Red Cell Dist. Width 14.3 % (11.5-14.5); White Blood Cell Count 12.5 10^3/uL (4.8-10.8)
[2024-09-05 12:10] VITALS: BP 118/68
--- NOTE | 2024-09-05 12:21 | CHAP ---
Ms. Newman received my visit graciously - she focused on acceptance. She has supportive family; one of her three sons lives in the area. Emotional and spiritual support provided.
--- NOTE | 2024-09-05 13:34 | W.DS.TRANS ---
DC Summary - Paper Inserter
-
Discharge Instructions:
Sleep Apnea Risk Low
Discharge Diagnosis/Procedures Dysphagia, esophageal stricture
Diet Other diet
Additional Diets Liquid diet, supplement with Ensure 3 times
daily
Activity As tolerated
Driving Restrictions No driving
Bathing Restrictions None
Instructions:
Stand-Alone Forms:
Changes to Home Medications: No
Discharge Medications:
DC Medications w/original date entered in [employer]
cyclosporine 0.05 % eye drops in a dropperette (Restasis) 1 drp BOTH EYES Q12H 08/02/24
dorzolamide-timolol (PF) 2 %-0.5 % eye drops in a dropperette 1 drp BOTH EYES BID 08/02/24
levothyroxine 25 mcg tablet 25 mcg PO DAILY 08/02/24
pantoprazole 40 mg tablet,delayed release 40 mg PO DAILY #30 tabs 08/05/24
polyethylene glycol 3350 17 gram oral powder packet 17 g PO DAILY #30 ea 08/05/24
famotidine 20 mg tablet 20 mg PO DAILY 09/04/24
letrozole 2.5 mg tablet 2.5 mg PO DAILY 09/04/24
amlodipine 10 mg tablet 10 mg PO DAILY #0 tabs 09/05/24
ramipril 5 mg capsule 5 mg PO BID #0 caps 09/05/24
Home Medication Changes
Pending Results: No
--- NOTE | 2024-09-05 14:03 | CM ---
Addendum entered by Faye Negron 09/05/24 14:39:
phone /fax [phone] for [facility] CM called and [facility] will update response when information received.
Addendum entered by Faye Negron 09/05/24 14:35:
IMM completed and signed form placed on chart. Patient referral to [facility], and son to transport home.
Original Note:
Patient seen at bedside, patient son not present, VM left for son requesting follow up phone call. CM spoke with Selin from [facility]nursing agency and she indicated that family would like referral to [facility] and CM will review IMM
with patient son when he arrives. CM will continue to follow for discharge planning needs.
Plan; home with [facility] referral and family supports
[2024-09-05] MEDS: RESTASIS 0.05% OPHTHALMIC EMULSION BOTH EYES (14:07)
--- NOTE | 2024-09-06 14:33 | CM ---
Addendum entered by Capri Joaquin 09/06/24 16:18:
Call son who confirmed they want [facility], not [facility]
Referral and order sent to [facility] via [facility]
Update to [facility] via [facility]
Original Note:
Post dc call from Christine JOHNSON/Magdy [phone]
Requesting that pt be set up with [facility] as pt was current with them prior to admission
Call with community hired CM/ Selin Herbert
She confirmed that family intentionally elected [facility] as family not pleased with overall care at [facility]
They are trying to transition all care to [facility]
Update to Magdy/Christine with update
Magdy spoke directly with son who indicated he was pleased with [facility]
She requested further F/U
VM left for Selin requesting she clarify with family on VN choice
== END 2024-09-05 15:11 | disposition home or self-care (01) ==
LOC: SDS 06:20
PROVIDERS: Hospitalist; Nurse Practitioner Family; ATTENDING PHYSICIAN Internal Medicine Gastroenterology
DX: C16.9 Malignant neoplasm of stomach, unspecified (principal); C16.0 Malignant neoplasm of cardia; K22.89 Other specified disease of esophagus; K22.2 Esophageal obstruction; K31.89 Other diseases of stomach and duodenum; C50.412 Malignant neoplasm of upper-outer quadrant of left female breast; C78.89 Secondary malignant neoplasm of other digestive organs; R18.8 Other ascites; R13.10 Dysphagia, unspecified; Z17.0 Estrogen receptor positive status [ER+]; Z53.9 Procedure and treatment not carried out, unspecified reason
CPT/HCPCS: 43249; 43239; 88305; 71260; 74160; 80048; 80053; 82533; 83930; 84443; 84484; 85025; 85027; 88341; 88360; 92610; 93005; 97162; C1726; Q9967

== ENCOUNTER → 2024-09-20 14:45 | Outpatient (REF) | payer MEDICARE, SELFPAY ==
[2024-09-20 10:54] LABS: % Basophils 0.5 % (0-2); % Eosinophils 2.1 % (0-6); % Immature Granulocytes 0.2 % (0-0.5); % Lymphocytes 10.6 % (20.5-51.1); % Monocytes 9.4 % (1.7-9.3); % Neutrophils 77.2 % (42.2-75.2); Absolute Eosinophils 0.1 10^3/uL (0-0.7); Absolute Lymphocytes 0.7 10^3/uL (1.2-3.4); Absolute Monocytes 0.6 10^3/uL (0.1-0.6); Absolute Neutrophils 5.1 10^3/uL (1.4-6.5); Hematocrit 30.6 % (37.0-47.0); Hemoglobin 10.3 g/dL (12.0-16.0); Mean Corp Hgb Conc. 33.7 g/dL (33.0-37.0); Mean Corpuscular Volume 80.1 fL (81.0-99.0); Mean Platelet Volume 9.5 fL (7.4-10.4); Platelet Count 438 10^3/uL (130-400); Red Blood Cell Count 3.82 10^6/uL (4.20-5.40); Red Cell Dist. Width 14.4 % (11.5-14.5); White Blood Cell Count 6.6 10^3/uL (4.8-10.8)
[2024-09-20 13:17] LABS: ALT (SGPT) 21 U/L (0-35); AST (SGOT) 25 U/L (14-36); Albumin 4.1 g/dl (3.5-5.0); Alkaline Phosphatase 82 U/L (38-126); Blood Urea Nitrogen 24 mg/dl (7-17); Calcium 9.3 mg/dl (8.4-10.2); Carbon Dioxide 22 mmol/L (22-30); Chloride 101 mmol/L (98-107); Glucose 181 mg/dl (70-99); Magnesium 2.1 mg/dl (1.6-2.3); Potassium 4.2 mmol/L (3.5-5.1); Sodium 132 mmol/L (135-145); Total Bilirubin 0.5 mg/dl (0.2-1.3); Total Protein 7.1 g/dl (6.3-8.2); eGFR > 60.00
== END ==
LOC: OIDL 14:45
PROVIDERS: ATTENDING PHYSICIAN Internal Medicine Hematology & Oncology
DX: Q78.2 Osteopetrosis (principal); M81.8 Other osteoporosis without current pathological fracture; Z85.3 Personal history of malignant neoplasm of breast; D64.9 Anemia, unspecified; C16.9 Malignant neoplasm of stomach, unspecified
CPT/HCPCS: 80053; 83735; 85025

== ENCOUNTER 2024-11-29 11:40 | Emergency (ER) | payer MEDICARE, SELFPAY ==
[2024-11-29 11:46] VITALS: BP 157/77
[2024-11-29 12:31] LABS: Hematocrit 33.5 % (37.0-47.0); Hemoglobin 11.5 g/dL (12.0-16.0); Mean Corp Hgb Conc. 34.3 g/dL (33.0-37.0); Mean Corpuscular Volume 84.2 fL (81.0-99.0); Nucleated Red Blood Cells % 0 %; Platelet Count 366 10^3/uL (130-400); Red Cell Dist. Width 20.0 % (11.5-14.5)
[2024-11-29 12:47] LABS: ALT (SGPT) 87 U/L (0-35); AST (SGOT) 52 U/L (14-36); Albumin 4.2 g/dl (3.5-5.0); Alkaline Phosphatase 60 U/L (38-126); Blood Urea Nitrogen 29 mg/dl (7-17); Calcium 9.6 mg/dl (8.4-10.2); Carbon Dioxide 22 mmol/L (22-30); Chloride 103 mmol/L (98-107); Glucose 126 mg/dl (70-99); Potassium 4.4 mmol/L (3.5-5.1); Sodium 132 mmol/L (135-145); Total Protein 7.3 g/dl (6.3-8.2); eGFR > 60.00
[2024-11-29 12:56] LABS: Troponin I < 0.012 ng/ml
[2024-11-29 15:30] VITALS: BP 159/68
[2024-11-29 15:38] VITALS: BP 159/68; BMI 21.0
--- NOTE | 2024-11-29 16:12 | ED.GENMED ---
History of Present Illness
General
Chief Complaint: Cardiac Symptoms
Source: patient and family
Exam Limitations: none
Time Seen by Provider: 11/29/24 15:37
Nursing documentation reviewed up to this point in time: agreed with
History of Present Illness
History of Present Illness:
Patient is an 84-year-old female with history CAD, hypertension, breast CA currently undergoing treatment who presents to the emergency department with concerns of chest pain. Patient states she was sitting in the waiting room at her oncologist
office earlier today when she had sudden onset pressure in her left chest. She reports feeling mildly lightheaded at the time. She denies any associated shortness of breath, dizziness, nausea or vomiting. She denies any radiation of pain to back,
shoulders, or jaw.
Patient states symptoms were constant for approximately 2 hours however by my assessment they have improved. She reports a mild headache however denies any visual changes, numbness/tingling in extremities.
Patient does states she has had a stent placed many years ago. At that time that she was experiencing significant shortness of breath and symptoms that were not similar to today's events.
Patient is currently undergoing treatment for breast CA.
Past History
Past History
ED Past Medical History: Cancer (Breast cancer)
ED Past Surgical History: Orthopedic (Elbow surgery, hip surgery, shoulder/) and Other (Breast surgery for breast cancer)
Social History
Tobacco: Non-smoker
Alcohol: None
Drug: None
Living: with family
Review of Systems
Review of Systems
Allergies reviewed?: Yes
All Other Systems: ROS reviewed and negative except as documented in HPI and ROS
Phy Exam
Physical Exam
Physical Exam:
Vitals: Hypertensive, otherwise vital signs stable. Afebrile
General: Patient is well appearing, no acute distress. Nontoxic appearing
Skin: Warm and dry, no rashes or lesions
Head: Normocephalic, atraumatic
Eyes: Sclera nonicteric.
Throat: Protecting airway
Neck: Normal ROM, no cervical spine tenderness, no meningismus. Trachea midline
Cardiac: Regular rate and rhythm, no murmurs. No reproducible chest wall tenderness. 2+ radial pulses bilaterally
Pulm: Normal respiratory effort, no wheezes, rales, rhonchi heard on exam
Abdomen: Abdomen soft and nontender.
Extremities: No evidence of cyanosis or edema. 2+ DP pulses bilaterally
Neuro: AAOx3. Grossly intact.
Psychiatric: Normal affect.
Course
Orders/Labs/Results
Orders:
Orders
11/29/24 11:41
ECG [Electrocardiogram (*1)] Urgent
Reason for Study: Chest Pain
EKG- Treatment ONCE
11/29/24 12:09
Complete Blood Count/With Diff Urgent
Comprehensive Metabolic Panel Urgent
Troponin I Urgent
11/29/24 15:54
Electrocardiogram (*1) Urgent
Reason for Study: Chest Pain
EKG- Treatment ONCE
11/29/24 15:55
CR Chest - 2 Views Urgent
Comment:
Reason For Exam: chest pressure
11/29/24 16:26
D-Dimer Urgent
Troponin I Urgent
11/29/24 17:03
CT Chest PE Study Urgent
Comment:
Reason For Exam: Chest pressure, breast CA, elevated dimer
Abnormal Lab Results
11/29/24 11/29/24
12:09 16:26
WBC 4.5 L 10^3/uL
(4.8-10.8)
RBC 3.98 L 10^6/uL
(4.20-5.40)
Hgb 11.5 L g/dL
(12.0-16.0)
Hct 33.5 L %
(37.0-47.0)
RDW 20.0 H %
(11.5-14.5)
Absolute Lymphs (auto) 1.1 L 10^3/uL
(1.2-3.4)
Monocytes % 10.6 H %
(1.7-9.3)
D-Dimer 0.88 H ug/mlFEU
(0.00-0.50)
Sodium 132 L mmol/L
(135-145)
BUN 29 H mg/dl
(7-17)
Glucose 126 H mg/dl
(70-99)
AST 52 H U/L
(14-36)
ALT 87 H U/L
(0-35)
11/29/24 12:09
11/29/24 12:09
Vital Signs
Initial and Last Documented VS:
Initial Vital Signs
Temp Pulse Resp BP Pulse Ox
98.2 F 66 16 157/77 98
11/29/24 11:46 11/29/24 11:46 11/29/24 11:46 11/29/24 11:46 11/29/24 11:46
Last Documented Vital Signs
Temp Pulse Resp BP Pulse Ox
97.8 F 60 16 139/68 99
11/29/24 19:21 11/29/24 19:46 11/29/24 19:46 11/29/24 19:46 11/29/24 19:46
MDM/Problems Addressed
Differential Diagnosis Includes:
Not limited to: Muscular strain, medication side effect, myocarditis, pericarditis, acute coronary syndrome, pulmonary embolism, etc.
MDM/Problems Addressed:
84-year-old female with history as documented presenting after approximately 2 hours of left-sided chest pressure occurring earlier today. This began while sitting in the waiting room of her oncologist office. No associated shortness of breath,
diaphoresis, nausea, or dizziness. No radiation of pain or clear exertional/pleuritic component. Not similar to symptoms many years ago prior to cardiac stent. Vitals and exam as above.
Differential includes muscle strain, GERD, acute coronary syndrome. Given malignancy�she would be at increased risk of PE however feel this is less likely given no associated shortness of breath. Labs obtained prior to my evaluation significant
for transaminitis�nonspecific. Initial EKG reveals normal sinus rhythm without acute ischemic changes. Initial troponin is undetectable. ED plan: Serial troponins, EKG. Given increased risk�will obtain D-dimer. Patient asymptomatic at this time.
Update: Serial troponins undetectable and EKG remains unchanged. Unfortunately�D-dimer was mildly elevated. Will obtain CTA chest.
Update: CTA chest without evidence of pulmonary embolism or dissection. Nodules noted and discussed with patient and family at bedside�possibly related to history of breast CA however will require further imaging. Patient has remained essentially
asymptomatic and very well-appearing. Given negative serial troponins x 2 as well as unremarkable EKG/imaging�feel stable for discharge home. Very low suspicion for ACS or acute emergent cardiac/pulmonary process today. Will place patient on
chest pain hotline and discharged with close return precautions. Advised patient to have LFTs repeated by oncologist to ensure trending down. Strict return precautions discussed. Patient and patient's family comfortable with plan
Chronic conditions affecting care:
Hypertension
Acute Exacerbation and/or Progression of Chronic Illness:
Acutely hypertensive
*Radiology
Radiology exam reviewed: radiology read reviewed
*Pulse Oximetry
SaO2: 100
Oxygen Mode of Delivery: Room air
Patient hypoxic: no
*EKG
Interpreted by ED Provider?: Yes
EKG Intrepretation Date: 11/29/24
Interpretation: abnormal
Comparison EKG: no changes
Heart Rate: 63
Rate: normal
Rhythm: sinus
[place]: normal axis
Interval: normal QT interval
QRS Pattern: normal QRS
Ischemia: no ischemia
*[employer] Apprentice Interpretation
Rate: normal
Interpretation: normal
Heart Rate: 64
Rhythm: sinus
*Critical Care Note
Total Time (30-74mins, 75-104mins- exclusive of procedures): Not Applicable
ED Attending Note
-
Portions of this chart may have been created with voice recognition software.� Occasional wrong word or��sound alike� substitutions may have occurred due to the inherent limitations of voice recognition software.
Discharge Plan
Departure
Patient Disposition: Home (Routine Discharge)
Date of Disposition: 11/29/24
Time of Disposition: 19:48
Patient with high blood pressure during this ER visit?: Yes
Condition: Good
Discharge Problem:
Chest pain
Instructions: Chest Pain CBC Follow Up, BLOOD PRESSURE
Prescriptions:
No Action
levothyroxine 25 mcg Tablet
25 mcg PO DAILY
cyclosporine [Restasis] 0.05 % Dropperette
1 drp BOTH EYES Q12H
dorzolamide-timolol (PF) 2-0.5 % Dropperette
1 drp BOTH EYES BID
polyethylene glycol 3350 17 gram Powder In Packet
17 g PO DAILY Qty: 30 0RF
pantoprazole 40 mg Tablet,Delayed Release (Dr/Ec)
40 mg PO DAILY Qty: 30 0RF
letrozole 2.5 mg Tablet
2.5 mg PO DAILY
famotidine 20 mg Tablet
20 mg PO DAILY
amlodipine 10 mg Tablet
10 mg PO DAILY Qty: 0 0RF
ramipril 5 mg Capsule
5 mg PO BID Qty: 0 0RF
Referrals:
Brandt Cross MD [Active, Cardiology] - Follow up in 2-3 days
Tom Hyatt MD [Family Provider, Internal Medicine]
Activity Restrictions/Additional Instructions:
RETURN TO THE EMERGENCY DEPARTMENT ANY CHEST PAIN, SHORTNESS OF BREATH, LIGHTHEADEDNESS/DIZZINESS, SIGNIFICANT WEAKNESS, WORSENING CURRENT SYMPTOMS, OR ANY OTHER CONCERNS
- You came to the emergency department with concerns of chest pain. Your cardiac enzymes and CT scan of your chest were without acute abnormalities. There was an incidental nodule noted in your right lung�please ensure this is followed up
appropriately with your oncologist.
- Your liver function were elevated. Please follow-up with your oncologist/primary care to ensure this is trending down
- Is important stay well-hydrated
- Please follow-up with the cardiology for further evaluation/management to ensure your symptoms improve. I have placed you on the chest pain hotline. Please give the food management aide a call if you do not hear from them in 2 days.
Monitor your symptoms closely and return to the emergency department with any acute worsening/new symptoms or any other concerns
Interventions
Interventions:
*Risk Screen - Suicide Last Done: 11/29/24 15:38
*General Assessment Last Done: 11/29/24 15:38
*Neglect/Abuse Screening Last Done: 11/29/24 15:38
*ED- Fall Risk Assessment Last Done: 11/29/24 15:38
*ED COVID-19 Vaccine History Last Done: 11/29/24 15:38
*Nursing Disposition Last Done: 11/29/24 20:07
ED- Pulmonary Assessment Last Done: 11/29/24 15:38
ED- Cardiac Assessment Last Done: 11/29/24 15:38
Discharge Date and Time
Discharge Date/Time: 11/29/24 20:12
Print Language: BHUTANESE
[2024-11-29 16:56] LABS: D-Dimer 0.88 ug/mlFEU (0.00-0.50)
[2024-11-29 17:06] LABS: Troponin I < 0.012 ng/ml
--- NOTE | 2024-11-29 17:15 | EDRN ---
this RN attempted to place a PIV in the LAC, the pt has a RUE limb alert in place, this RN was unsuccessful, this RN notified Barb from IV team that the pt is a difficult stick and asked Barb from IV team to come and try to place a PIV,
Barb is currently at the pts bedside
[2024-11-29 19:17] VITALS: BP 175/78
[2024-11-29 19:46] VITALS: BP 139/68
== END 2024-11-29 20:12 | disposition home or self-care (01) ==
LOC: EMR 11:40
PROVIDERS: Emergency Medicine; Physician Assistant; EMERGENCY PHYSICIAN Emergency Medicine; FAMILY PHYSICIAN Internal Medicine
DX: R07.89 Other chest pain (principal); I25.10 Atherosclerotic heart disease of native coronary artery without angina pectoris; I10 Essential (primary) hypertension; C50.919 Malignant neoplasm of unspecified site of unspecified female breast; Z95.5 Presence of coronary angioplasty implant and graft
CPT/HCPCS: 99284; 71046; 71275; 80053; 84484; 85025; 85379; 93005; Q9967

== ENCOUNTER → 2025-01-18 14:58 | Outpatient (REF) | payer MEDICARE, SELFPAY | LOC: RCS 14:58 | PROVIDERS: ATTENDING PHYSICIAN Internal Medicine; FAMILY PHYSICIAN Internal Medicine | DX: I25.10 Atherosclerotic heart disease of native coronary artery without angina pectoris (principal) | CPT/HCPCS: 93306 ==